=== PATIENT | female | born 1995 | race Two or more races ===

== ENCOUNTER 2022-08-03 17:39 | Emergency (ER) | payer OTHER, SELFPAY ==
--- NOTE | ~2022-08-03 | XR_ITS ---
EXAMINATION: XR LUMBOSACRAL SPINE CLINICAL INFORMATION: Back pain COMPARISON: None TECHNIQUE: Three views of the lumbosacral spine. FINDINGS: Transitional vertebra at the lumbosacral junction consistent with a partially lumbarized S1 segment. Rudimentary S1-S2 intervertebral disc. 5 nonrib-bearing lumbar-type vertebra. Normal alignment. No subluxation. Minimal dextroconvex curvature of the lumbar spine. Vertebral body heights are maintained. No acute fracture. Mild disc height loss at L5-S1 with minimal endplate sclerosis. Intervertebral disc heights otherwise maintained. No pars defects identified. XR/XR lumbar spine 2-3V IMPRESSION: 1. Transitional anatomy with spine labeling as above for purposes of this report. 2. Mild disc degenerative change at L5-S1. 3. No subluxation or fracture.
[2022-08-03 18:17] VITALS: BP 126/75; PULSE 75; RESP 16; TEMP 35.9; O2SAT 98; BMI 49.6
--- NOTE | 2022-08-03 19:35 | ED_ITS ---
HPI - Back Pain/Injury General Chief Complaint: Back Pain/Injury Stated Complaint: back pain Time Seen by Provider: 08/03/22 19:35 Source: patient Mode of arrival: ambulatory Limitations: no limitations History of Present Illness HPI Narrative: 26-year-old female with no pertinent PMHx presenting to the ED with low back pain x 5 days. The patient reports that for the past 5 days she has been having aching right sided low back pain and spasms with radiation down the right leg just above the knee. She also notes some tingling in her right leg. She has been taking Tylenol and using heating pads/lidocaine patches at home without relief. She denies any recent heavy lifting or injury. She tells me that she just took final exams and thought maybe her pain was due to being hunched over at a desk for long periods of time. Denies any midline tenderness, urinary/bowel incontinence/retention,fever, chills, saddle anesthesia, chest pain, shortness of breath, dysuria, or dizziness. Denies IVDA hx and spinal surgeries. MD elicited complaint: back pain Related Data Previous Rx's Medication Instructions Recorded cyclobenzaprine 10 mg tablet 10 mg PO BEDTIME PRN muscle spasm 08/03/22 #7 tabs lidocaine 5 % topical patch 1 patch topical DAILY PRN pain #15 08/03/22 ea Allergies Allergy/AdvReac Type Severity Reaction Status Date / Time strawberry [STRAWBERRY] Allergy Intermediate RASH Unverified 07/17/20 16:41 Review of Systems Review of Systems: Constitutional : No Weight loss, No Fever, No Chills, No Fatigue, No Malaise ENT/Mouth : No sore throat, No Rhinorrhea Eyes: No Eye Pain, No Swelling, No Redness Cardiovascular : No Chest Pain, No SOB, No Dyspnea on Exertion, No Orthopnea, No Edema, No Palpitations Respiratory : No Cough, No Sputum, No Wheezing Gastrointestinal : No Nausea, No Vomiting, No Diarrhea, No Constipation, No abdominal Pain, No Hematochezia, No Melena Genitourinary : No Dysuria, No Urinary Frequency, No Hematuria, Musculoskeletal : + joint pain, No Myalgias, No Joint Swelling Skin : No Skin Lesions, No rash Neuro : No Weakness, No Numbness, No Dizziness, No Headache Psych : No Anxiety/Panic, No Depression All other systems reviewed and are negative Yes all other systems are reviewed and are negative [facility] Past Medical History Attestation statement: The following information was validated with the patient. Source: old records reviewed and nursing notes reviewed Social History Social History Advance Directives: No Advance Directives Information Provided: No Physical Exam 2 Vital Signs: Vital Signs: Last Vital Signs Temp 96.7 F L 08/03/22 18:17 Pulse 75 08/03/22 18:17 Resp 16 08/03/22 18:17 BP 126/75 08/03/22 18:17 Pulse Ox 98 08/03/22 18:17 O2 Del Method 08/03/22 18:17 BMI result Body Mass Index 49.6 VSS Appearance: Alert.? Oriented X3.? No acute distress.? Head: Normocephalic, atraumatic, no step-offs or deformities Eyes: Pupils equal, round and reactive to light.? Neck: Normal inspection.? Neck supple.? CVS: Normal heart rate and rhythm.? Pulses normal, 2+ distally, bilaterally. Respiratory: No respiratory distress.? Breath sounds normal.? Abdomen: Soft and nontender.? Skin: Skin warm and dry.? Normal skin color.? Normal skin turgor.? Extremities: No lower extremity edema.? No calf ttp. 5/5 strength to bilateral upper and lower extremities 2+ dtr B/L lower extremities. Back: Mild right lumbar paraspinal tenderness to palpation. No midline tenderness, no C-spine tenderness, full range of motion, no CVA tenderness bilaterally. DTRs intact at patella. Sensation intact to lower extremities. Neuro: Oriented X 3.? No motor deficit.? No sensory deficit. CN 2-12 intact . No saddle paresthesias ambulating with steady gait normal coordination. Course Reevaluation(s) Reevaluation #1: X-ray of the lumbar spine with mild degenerative changes at L5-S1, no subluxation or fractures. Educated patient on findings of x-ray. Advised her to follow-up with [facility], will likely require an MRI if symptoms continue. Patient ambulating with steady gait and telling me that Toradol helped a lot. She reports significant improvement, tells me she is feeling much better and would like to go home. At this time patient will be discharged home with strict return precautions. Time: 21:09 MDM - Back Pain/Injury MDM Narrative Medical decision making narrative: 19:40 26 y/o female with no known PMHx presenting to the ED with lower back pain w/ radiation down the right leg. No known injury. PE remarkable for mild right paraspinal tenderness, no midline tenderness. Suspect sciatica at this time. Possible muscle strain. Low suspicion for acute fracture, cauda equina, epidural abscess. Plan to obtain basic labs, lumbar spine x-ray. Will give Toradol, lidocaine, and reevaluate. Medical Records Attestation: I reviewed the patient's medical records. Lab Data Attestation: I reviewed the patient's lab results. Critical Care Time Critical Care Time Critical Care Time: No Discharge Plan Discharge Clinical Impression: Sciatica Patient Disposition: Home, Self-Care Instructions: Sciatica (ED) Additional Instructions: Take your medications as prescribed. If you were prescribed antibiotics today, it is important that you take your medication to their entirety, do not skip any doses, do not finish them early. Follow-up with your primary care provider this week. Follow-up with [facility], you may require an MRI of the back to further evaluate this. Return to the emergency department with new or worsening symptoms. Such as fevers, chills, chest pain, shortness of breath, nausea, vomiting, dizziness, headache, vision changes, lethargy, loss of bladder or bowel control, weakness, loss of sensation to lower extremities. In case of emergency call 911 You can take ibuprofen every 6 hours, Tylenol every 4 as needed for pain or discomfort. Takes cyclobenzaprine at night as discussed, do not take this while driving or operating machinery as it can cause drowsiness. Prescriptions: New cyclobenzaprine 10 mg tablet 10 mg PO BEDTIME PRN (Reason: muscle spasm) Qty: 7 0RF lidocaine 5 % adhesive patch,medicated 1 patch topical DAILY PRN (Reason: pain) Qty: 15 0RF Rx Instructions: leave on most painful area for up to 12 hrs Referrals: [facility] [Provider Group] - 3 days Nu Wadsworth MD [Primary Care Provider] - 2 days Stand Alone Forms: Work/School Release
[2022-08-03] MEDS: Ketorolac Tromethamine 15 MG/ML VIAL IM (20:49)
[2022-08-03] MEDS: Lidocaine 4 % Patch ADH..PATCH 1 PATCH TRANSDERMA (20:49)
== END 2022-08-03 21:27 | disposition home or self-care (01) ==
PROVIDERS: Emergency Provider Emergency Medicine Emergency Medical Services; PCP Internal Medicine
DX: M54.41 Lumbago with sciatica, right side (principal)
CPT/HCPCS: 72100; 96372; 99283; 99284; J1885

== ENCOUNTER 2022-08-20 11:13 | Emergency (ER) | payer OTHER, SELFPAY ==
[2022-08-20 11:16] VITALS: BP 149/81; PULSE 94; RESP 18; TEMP 36.6; O2SAT 94; BMI 51.1
--- NOTE | 2022-08-20 11:46 | ED_ITS ---
HPI - Back Pain/Injury General Chief Complaint: Back Pain/Injury Stated Complaint: lower back pain Time Seen by Provider: 08/20/22 11:34 Source: patient Mode of arrival: ambulatory History of Present Illness HPI Narrative: 26-year-old female with a past medical history of sciatica presenting to the ED complaining of recurrent sciatic pain since yesterday. Reports similar symptoms in the past was seen in ED prescribed muscle relaxer/Lidoderm patches, and also at PCPs office, reports symptoms did improve however yesterday worsened. Admits to pain worse on the left low back with radiation down lower extremity and associated paresthesias. Denies known injury, trauma, fall, weakness, urinary incontinence/retention, fever MD elicited complaint: back pain Pertinent past history: prior back pain Onset (ago): day(s) Related Data Previous Rx's Medication Instructions Recorded cyclobenzaprine 10 mg tablet 10 mg PO BEDTIME PRN muscle spasm 08/03/22 #7 tabs lidocaine 5 % topical patch 1 patch topical DAILY PRN pain #15 08/03/22 ea acetaminophen 500 mg tablet 500 mg PO Q6H PRN fever or pain 08/20/22 (Tylenol Extra Strength) #14 tabs cyclobenzaprine 5 mg tablet 5 mg PO Q8H PRN pain (scale score 08/20/22 7-10) 5 days #14 tabs lidocaine 5 % topical patch 1 patch topical DAILY PRN pain #30 08/20/22 (Lidoderm) ea naproxen 500 mg tablet 500 mg PO BID PRN pain 10 days #20 08/20/22 tabs prednisone 20 mg tablet 40 mg PO DAILY 5 days #10 tabs 08/20/22 Allergies Allergy/AdvReac Type Severity Reaction Status Date / Time strawberry [STRAWBERRY] Allergy Intermediate RASH Unverified 07/17/20 16:41 Review of Systems Review of Systems: Constitutional: No Fever, No Chills ENT/Mouth: No Ear Pain, No Nasal Congestion, No sore throat, No Rhinorrhea, No Swallowing Difficulty Cardiovascular: No Chest Pain, No SOB Respiratory: No Cough, No Sputum, No Wheezing Gastrointestinal: No Nausea, No Vomiting, No Diarrhea, No Constipation, No Abdominal pain Genitourinary: No Dysuria, No Urinary Frequency, No Hematuria, No Urinary Incontinence/retention, No Urgency, No Flank Pain Musculoskeletal: + back pain, No Myalgias, No Joint Swelling Skin: No Skin Lesions, No rash Neuro: No Weakness, No Numbness, + Paresthesias Yes all other systems are reviewed and are negative Constitutional: Constitutional: Reports as per HPI Neurologic: Denies Sensory deficit (Neuro) [facility] Past Medical History Attestation statement: The following information was validated with the patient. Social History Social History Advance Directives: No Advance Directives Information Provided: No Physical Exam Vital Signs: Vital Signs: Last Vital Signs Temp 97.8 F 08/20/22 11:16 Pulse 94 08/20/22 11:16 Resp 18 08/20/22 11:16 BP 149/81 H 08/20/22 11:16 Pulse Ox 94 08/20/22 11:16 O2 Del Method 08/20/22 11:16 BMI result Body Mass Index 51.1 Const: General: cooperative, healthy appearing and no acute distress Orientation/consciousness: patient oriented x3 Limitations: no limitations HEENT: Head: Yes normal to inspection and Yes atraumatic Ears: hearing grossly normal bilaterally General nose exam: Normal external nose present Face and sinus: Yes normal facial exam Eyes: General: appearance normal, both eyes and all related structures EOM: EOMs intact bilaterally Neck: Neck: Yes normal visual inspection and Yes no meningeal signs Resp: Effort & Inspection: normal respiratory effort and no respiratory distress Auscultation: clear to auscultation bilaterally Cardio: Rate: regular rate Heart sounds: S1 normal heart sound present and S2 normal heart sound present GI: Inspection: Yes normal to inspection Palpation (GI): Soft to palpation and nontender : General: Yes no CVA tenderness Back/Spine/Pelvis: Other: No midline thoracic/lumbar spinous tenderness/step-off or deformity. + left- sided lower lumbar paraspinal and MSK tenderness to palpation Back: no CVA tenderness Skin: Rashes: no rashes Wounds: no wounds Neuro: Other: Strength intact throughout. No saddle anesthesia. Sensation intact to light touch. Neurovascular intact distally General: patient oriented x3, gait normal, tone normal, moves all extremities, no meningeal signs and no focal motor deficits Gait exam (Neuro): Normal gait present Motor exam (neuro): 5/5 motor strength present throughout Sensory Exam: No Sensory deficit (Neuro) Extrem: General: Yes normal to inspection MDM - Back Pain/Injury MDM Narrative Medical decision making narrative: 26-year-old female with a past medical history of sciatica presenting to the ED complaining of recurrent sciatic pain since yesterday. On exam vital signs stable, NAD, nontoxic appearing, physical exam as above, no midline spinous tenderness or red flag symptoms. Concern for sciatica vs herniated disc vs MSK pain/strain. Low suspicion for cauda equina, cord compression or epidural abscess Plan: IM Toradol, symptomatic treatment, PCP follow-up Differential Diagnosis Differential diagnosis: Likely lumbar radiculopathy, sciatica and strain of lumbar region; Unlikely renal colic or pyelonephritis Medical Records Attestation: I reviewed the patient's medical records. Lab Data Attestation: I reviewed the patient's lab results. Discharge Plan Discharge Clinical Impression: Sciatica Patient Disposition: Home, Self-Care Instructions: Sciatica (ED) Additional Instructions: Your pain is likely musculoskeletal Flexeril is a muscle relaxer, take at night as it makes you drowsy, do not drive, drink alcohol, or operate machinery while taking it Prednisone as a steroid, this is a help with inflammation. Naproxen as an anti-inflammatory / pain medication, take with food Lidoderm patches are numbing patches, apply to painful area In addition take Tylenol at home If symptoms persist or worsen, pain becomes unbearable, you developed urinary retention or incontinence, or weakness return to the ED Prescriptions: New prednisone 20 mg tablet 40 mg PO DAILY 5 Days Qty: 10 0RF acetaminophen [Tylenol Extra Strength] 500 mg tablet 500 mg PO Q6H PRN (Reason: fever or pain) Qty: 14 0RF lidocaine [Lidoderm] 5 % adhesive patch,medicated 1 patch topical DAILY MDD remove after 12 hours PRN (Reason: pain) Qty: 30 0RF Rx Instructions: leave on most painful area for up to 12 hrs naproxen 500 mg tablet 500 mg PO BID PRN (Reason: pain) 10 Days Qty: 20 0RF cyclobenzaprine 5 mg tablet 5 mg PO Q8H PRN (Reason: pain (scale score 7-10)) 5 Days Qty: 14 0RF No Action cyclobenzaprine 10 mg tablet 10 mg PO BEDTIME PRN (Reason: muscle spasm) Qty: 7 0RF lidocaine 5 % adhesive patch,medicated 1 patch topical DAILY PRN (Reason: pain) Qty: 15 0RF Rx Instructions: leave on most painful area for up to 12 hrs Referrals: Nu Wadsworth MD [Primary Care Provider] - 1 week Stand Alone Forms: Work/School Release Interventions: ED Discharge Assessment Last Done: 08/20/22 12:02 Discharge Date/Time: 08/20/22 12:03
[2022-08-20] MEDS: Ketorolac Tromethamine 30 MG/ML VIAL IM (11:47)
== END 2022-08-20 12:03 | disposition home or self-care (01) ==
PROVIDERS: Emergency Provider Emergency Medicine; PCP Internal Medicine
DX: M54.42 Lumbago with sciatica, left side (principal)
CPT/HCPCS: 96372; 99283; 99284; J1885

== ENCOUNTER 2023-06-12 12:01 | Emergency (ER) | payer OTHER, SELFPAY ==
[2023-06-12 12:06] VITALS: BP 124/67; PULSE 90; RESP 18; TEMP 37.1; O2SAT 98; BMI 52.0
--- NOTE | 2023-06-12 12:14 | ED_ITS ---
HPI - General Adult General Chief complaint: General Medical Stated complaint: Nausea/Body aches/Sore throat Time Seen by Provider: 06/12/23 12:35 Source: patient Mode of arrival: ambulatory Limitations: no limitations History of Present Illness HPI narrative: Patient is a 27-year-old female presenting to the emergency department with 4 days of generalized body aches, sore throat, sweats/chills, nausea and dry he aves, diarrhea. She denies abdominal pain. Has been able to tolerate PO food and fluids throughout. Denies sick contacts. MD complaint: nausea, vomiting, diarrhea Onset (ago): day(s) Quality: burning (throat) Pain Consistency: constant Relieving factors: none Exacerbating factors: eating Associated symptoms: fever/chills and nausea/vomiting Treatments prior to arrival: other (OTC cold and flu medicine) Related Data Previous Rx's Medication Instructions Recorded cyclobenzaprine 10 mg tablet 10 mg PO BEDTIME PRN muscle spasm 08/03/22 #7 tabs lidocaine 5 % topical patch 1 patch topical DAILY PRN pain #15 08/03/22 ea acetaminophen 500 mg tablet 500 mg PO Q6H PRN fever or pain 08/20/22 (Tylenol Extra Strength) #14 tabs cyclobenzaprine 5 mg tablet 5 mg PO Q8H PRN pain (scale score 08/20/22 7-10) 5 days #14 tabs lidocaine 5 % topical patch 1 patch topical DAILY PRN pain #30 08/20/22 (Lidoderm) ea naproxen 500 mg tablet 500 mg PO BID PRN pain 10 days #20 08/20/22 tabs prednisone 20 mg tablet 40 mg PO DAILY 5 days #10 tabs 08/20/22 ibuprofen 600 mg tablet 600 mg PO Q8H PRN pain #10 tabs 06/12/23 ondansetron 4 mg disintegrating 4 mg PO Q8H PRN nausea and 06/12/23 tablet vomiting #10 tabs Allergies Allergy/AdvReac Type Severity Reaction Status Date / Time strawberry [STRAWBERRY] Allergy Intermediate RASH Verified 06/12/23 12:06 Review of Systems Review of Systems: As per HPI. Yes all other systems are reviewed and are negative Constitutional: Constitutional: Reports as per HPI [facility] Social History Social History Advance Directives: No Physical Exam ED Vital Signs: Vital Signs - 24 hr 06/12/23 12:06 Temperature 98.7 F Pulse Rate 90 Respiratory Rate 18 Blood Pressure 124/67 Pulse Oximetry 98 Oxygen Delivery Method Room Air BMI result Body Mass Index 52.0 Vital signs have been reviewed and appear to be correct. Blood pressure normal. Heart rate normal. Respiratory rate normal. Temperature normal. Oxygen saturation normal. Const General: cooperative, healthy appearing and no acute distress Orientation/consciousness: oriented to person, oriented to place, oriented to time and patient oriented x3 Limitations: no limitations HENMT Head: Yes normocephalic and Yes atraumatic Ears: external ears normal, TM's normal bilaterally and EAC's normal General nose exam: Normal external nose present Face and sinus: Yes face symmetric Mouth: oropharynx normal and moist mucous membranes Throat: Yes posterior oropharynx normal, Yes uvula midline and No uvular edema Eyes Pupils: Equal, round and reactive pupils present Neck Neck: Yes normal visual inspection, Yes no lymphadenopathy and Yes supple Resp Effort & Inspection: normal respiratory effort and able to speak in complete sentences Auscultation: clear to auscultation bilaterally Cardio Rate: regular rate Rhythm: regular rhythm Heart sounds: S1 normal heart sound present and S2 normal heart sound present GI Inspection: Yes normal to inspection Palpation (GI): Soft to palpation and nontender Auscultation: normoactive bowel sounds General: Yes no CVA tenderness Back/Spine/Pelvis Back: no CVA tenderness Skin General skin exam: elasticity normal and turgor normal Neuro General: oriented to person, oriented to place, oriented to time, patient oriented x3, moves all extremities, no focal motor deficits and CN's II-XI intact bilaterally Cranial nerves: Yes Equal, round and reactive pupils present Cognition (Neuro): normal cognition Extrem General: Yes full ROM, Yes no pedal edema and Yes no calf tenderness Psych Mental Status: mental status grossly normal Affect: normal affect Thought process: Normal thought process present Course Course Course Narrative: RME: 27 yold female presents to the ED for nausea, bodyaches, cough, dry heaving, diarrhea since yesterday. patient states no recent travel outside the country. Strep/covid/influenza ordered Medical Decision Making Medical Decision Making MDM Narrative: Patient is a 27-year-old female presenting to the emergency department with 4 days of generalized body aches, sore throat, sweats/chills, nausea and dry heaves, diarrhea. On exam patient is awake, A+Ox3, VS WNL, afebrile, nontoxic appearing, normal neurological exam without focal deficits, LS CTA throughout, abdomen soft and nontender, no CVA tenderness. Given reported symptoms and physical exam findings, initial differential includes viral illness including Covid, flu, strep pharyngitis, viral gastroenteritis. Labs notable for Covid, flu, and strep negative. Feel symptoms are likely related to viral gastroenteritis, patient stable for discharge home. Will prescribe ondansetron for nausea, 600mg ibuprofen. Instructed patient to follow-up with PCP. Return precautions discussed at bedside. Patient verbalized understanding of and agreement with plan. Differential Diagnosis Differential Diagnoses: The differential diagnosis associated with the presentation includes As per [facility]. Lab Data [facility] Lab Attestation statement: I reviewed the patient's lab results. As per [facility]. Labs: Lab Results 06/12/23 06/12/23 06/12/23 Range/Units 12:20 12:20 12:20 COVID-19 ([facility]) Negative (Negative) COVID-19 Clin Com See Note Influenza Type A ([facility]) Negative (Negative) Influenza Type B ([facility]) Negative (Negative) Influenza A & B Note See Note S. pyogenes GrpA [facility] Negative (Negative) External Record Review External record reviewed: Inpatient record, Office record and Outpatient record Prescription Management I considered prescription management with: Other Discharge Plan Discharge Clinical Impression: Viral gastroenteritis Patient Disposition: Home, Self-Care Instructions: Acute Nausea and Vomiting (ED), Acute Diarrhea (ED), Enteritis (ED) Additional Instructions: You have been evaluated in the emergency department today for nausea, vomiting, and diarrhea. Your evaluation suggests that your symptoms are most likely due to a viral illness which will improve on it's own with rest and fluids. Remember to drink plenty of fluids at home. You are being prescribed ondansetron which you can use as per the prescription instructions for nausea. You are also being prescribed 600mg ibuprofen which you can take every 6 hours. You can also take Tylenol as needed. Please follow up with your primary care provider within two days. Return to the emergency department if you experience worsening or uncontrolled pain, inability to tolerate fluids by mouth, difficulty breathing, fevers 100.4? F or greater, recurrent vomiting, or any other concerning symptoms. Prescriptions: New ondansetron 4 mg tablet,disintegrating 4 mg PO Q8H PRN (Reason: nausea and vomiting) Qty: 10 0RF ibuprofen 600 mg tablet 600 mg PO Q8H PRN (Reason: pain) Qty: 10 0RF No Action cyclobenzaprine 10 mg tablet 10 mg PO BEDTIME PRN (Reason: muscle spasm) Qty: 7 0RF lidocaine 5 % adhesive patch,medicated 1 patch topical DAILY PRN (Reason: pain) Qty: 15 0RF Rx Instructions: leave on most painful area for up to 12 hrs prednisone 20 mg tablet 40 mg PO DAILY 5 Days Qty: 10 0RF acetaminophen [Tylenol Extra Strength] 500 mg tablet 500 mg PO Q6H PRN (Reason: fever or pain) Qty: 14 0RF lidocaine [Lidoderm] 5 % adhesive patch,medicated 1 patch topical DAILY MDD remove after 12 hours PRN (Reason: pain) Qty: 30 0RF Rx Instructions: leave on most painful area for up to 12 hrs naproxen 500 mg tablet 500 mg PO BID PRN (Reason: pain) 10 Days Qty: 20 0RF cyclobenzaprine 5 mg tablet 5 mg PO Q8H PRN (Reason: pain (scale score 7-10)) 5 Days Qty: 14 0RF Stand Alone Forms: Work/School Release Interventions: ED Discharge Assessment Last Done: 06/12/23 13:13 Discharge Date/Time: 06/12/23 13:13
[2023-06-12 12:43] LABS: IDNOW Serial# 08D9AD1C; Strep A Nucleic Acid Negative (Negative)
[2023-06-12 12:49] LABS: COVID-19 Test Negative (Negative); IDNOW Serial# 9DB6401D
[2023-06-12 12:51] LABS: IDNOW Serial# BCCEAD1C; Influenza A Negative (Negative); Influenza B2 Negative (Negative)
== END 2023-06-12 13:13 | disposition home or self-care (01) ==
PROVIDERS: Physician Assistant; Emergency Provider Emergency Medicine Emergency Medical Services; PCP Internal Medicine
DX: A08.4 Viral intestinal infection, unspecified (principal); M79.10 Myalgia, unspecified site; R11.2 Nausea with vomiting, unspecified; J02.8 Acute pharyngitis due to other specified organisms; R50.9 Fever, unspecified; Z20.822 Contact with and (suspected) exposure to COVID-19; Z20.828 Contact with and (suspected) exposure to other viral communicable diseases; Z79.899 Other long term (current) drug therapy
CPT/HCPCS: 87502; 87635; 87651; 99282; 99283

== ENCOUNTER 2025-01-01 10:14 | Outpatient (AMB) | payer OTHER, SELFPAY ==
[2025-01-01 10:32] VITALS: BP 122/72; BMI 50.7
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
== END 2025-01-01 11:41 | disposition home or self-care (01) ==
PROVIDERS: PCP Internal Medicine; Visit Provider Advanced Practice Midwife
DX: Z97.5 Presence of (intrauterine) contraceptive device (principal); Z62.810 Personal history of physical and sexual abuse in childhood; F43.10 Post-traumatic stress disorder, unspecified; E66.01 Morbid (severe) obesity due to excess calories; Z30.018 Encounter for initial prescription of other contraceptives
CPT/HCPCS: 99204

== ENCOUNTER → 2025-01-01 10:14 | Outpatient (BNVA) | payer OTHER, SELFPAY | PROVIDERS: PCP Internal Medicine; Visit Provider Advanced Practice Midwife ==

== ENCOUNTER 2025-02-15 14:36 | Outpatient (AMB) | payer OTHER, SELFPAY ==
--- NOTE | 2025-02-15 14:39 | MHC.OFFVIS ---
Vital Signs 02/15/25 14:54 Height 5 ft 5 in Weight 305 lb BMI 50.7 BP 120/72 Intake Visit Reasons: Nexplanon Removal Air Brake Tester: Air Brake Tester Present (Delores Patel, KEITH) Accompanied by: Self / Same As Patient Allergies strawberry [STRAWBERRY] Allergy (Intermediate, Verified 02/15/25 14:53) RASH Is last menstrual period known: Yes Last menstrual period: 10/23/24 Post menopausal: No Patient : No HPI HPI Nexplanon Removal: Details: Patient is here to remove her Nexplanon she had it inserted in the fall when there was major fear about accessibility to control with the upcoming administration. Those fears are still there however she is not sexually active, but the side effects are not worth it at this time so she would like it removed. [facility] Medical History Asthma Family History Mother Cervical cancer Social History (Updated 01/01/25 @ 10:38 by Houston Arevalo CMA) Alcohol intake: current Alcohol intake frequency: holidays/special occasions only Patient Tobacco Use Status: Never used Tobacco Female Reproductive History Menstrual Age of Menarche: 13 Duration of menses: 8-10 days Date of last menstrual period: 10/23/24 control method: implanted Total pregnancies: 0 Physical Exam Vital Signs: Last Vital Signs BP 120/72 02/15/25 14:54 BMI result Body Mass Index 50.7 Const Other: Nexplanon palpable in patient's arm Office Procedures Contraception Insert/Removal Details Details: Nexplanon Removal/Reinsertion Insertion Procedure The patient was placed in a supine position with her non dominant hand resting under her head. The insertion site was located: 8-10cm from the medial epicondyle notch of the humerus, posterior to the sulcus, between the triceps and biceps muscle. The area of the previous implant was identified and the distal tip located. This area was cleansed with an alcohol prep and 3 ml of 2% Lidocaine on a 25 gauge needle and syringe was utilized for adequate anesthesia to the insertion site. After ascertaining adequate anesthesia, the area was prepped with Betadine solution. The skin over the distal tip was incised with a #11 blade scalpel and the capsule was located and entered freeing the implant from the canal. The implant was removed with a gentle tug using a mosquito clamp and removed intact. Direct pressure was applied to the insertion site for hemostasis, minimal bleeding was observed. Steri strips, Tegaderm covering, gauze pads, and Bradley wrap dressing were secured with paper tape. The implant was palpable underneath the skin by myself and the patient. The patient tolerated the procedure well and left the office in good condition. 05773 - Removal Assessment & Plan Assessment & Plan (1) Nexplanon in place: Comment: Removed 02/15/2025 Code(s): Z97.5 - Presence of (intrauterine) contraceptive device Category: Social Hx (2) Hormonal contraceptive: Code(s): Z30.018 - Encounter for initial prescription of other contraceptives Category: Social Hx (3) Obesity, morbid, BMI 50 or higher: Code(s): E66.01 - Morbid (severe) obesity due to excess calories Category: Medical (4) Encounter for Nexplanon removal: Code(s): Z30.46 - Encounter for surveillance of implantable subdermal contraceptive Category: Medical Plan See the note. The Nexplanon was removed without difficulty Steri-Strips were placed and a Tegaderm over that and a pressure dressing placed over that recommend leaving the pressure dressing on as long as she can as the generous use of the lidocaine and the adipose might tend towards disruption of the site if removed early. She was on control pills before the Nexplanon and would like to get back on them again she has a history of irregular periods so this would benefit her in terms of at least preventing buildup of uterine lining and unpredictable problematic vaginal bleeding patterns. I prescribed a low-dose control pill for her that I recommend she start this weekend possibly on Tuesday and that way she will be covered and be protected from buildup of a uterine lining. We will see her in about 2 months to see how she is doing blood pressure vences and how she likes the pills and also just double check the Nexplanon site. Reviewed what to do if there is any problems with bleeding, but I recommend leaving the pressure dressing on as long as possible and if it is not bothering her consider leaving it on overnight leave the Tegaderm on for 3 days. Orders: Orders AMB Nexplanon/Implanon Insertion - Patient Supply Today Z30.018 - Encounter for initial prescription of other contraceptives, Z30.46 - Encounter for surveillance of implantable subdermal contraceptive, Z97.5 - Presence of (intrauterine) contraceptive device Medications: New desog-e.estradiol/e.estradiol 0.15-0.02 mgx21 /0.01 mg x 5 1 tab PO DAILY 84 tabs 4RF Coding Level of Care Code Est Pt Level 3 (87873) Diagnoses Nexplanon in place Z97.5 Hormonal contraceptive Z30.018 Obesity, morbid, BMI 50 or higher E66.01 Encounter for Nexplanon removal Z30.46 CPT Codes Details - Contraception: 70855 - Removal ([id number])
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
[2025-02-15 14:54] VITALS: BP 120/72; BMI 50.7
== END 2025-02-15 16:10 | disposition home or self-care (01) ==
LOC: HO.HWS 14:36
PROVIDERS: PCP Internal Medicine; Visit Provider Advanced Practice Midwife
DX: Z30.46 Encounter for surveillance of implantable subdermal contraceptive (principal)
CPT/HCPCS: 11982

== ENCOUNTER → 2025-02-15 14:36 | Outpatient (BNVA) | payer OTHER, SELFPAY | PROVIDERS: PCP Internal Medicine; Visit Provider Advanced Practice Midwife | DX: E66.01 Morbid (severe) obesity due to excess calories (principal); Z30.46 Encounter for surveillance of implantable subdermal contraceptive; Z30.018 Encounter for initial prescription of other contraceptives; Z68.43 Body mass index [BMI] 50.0-59.9, adult | CPT/HCPCS: 11982 ==

== ENCOUNTER 2025-02-17 16:11 | Emergency (ER) | payer OTHER, SELFPAY ==
--- NOTE | ~2025-02-17 | CT_ITS ---
CLINICAL HISTORY: left flank pain CT abdomen and pelvis without contrast Comparison: None Findings: The lung bases are clear. Moderate left hydronephrosis with an obstructing 3 mm stone at the left ureterovesicular junction. Additionally punctate nonobstructing stones are noted bilaterally. Gallbladder is contracted with multiple gallstones. No pericholecystic fluid. Solid organs are otherwise unremarkable. No bowel obstruction, pneumoperitoneum, or pneumatosis. Pelvic contents unremarkable. No evidence of appendicitis. No acute fracture. IMPRESSION: Moderate left hydronephrosis with a 3 mm obstructing stone at the ureterovesicular junction. Additional punctate nonobstructing stones seen bilaterally. Cholelithiasis with contracted gallbladder. This document has been electronically signed by: Brian Lowery MD on 02/17/2025 19:40:22
[2025-02-17 16:19] VITALS: BP 144/102; PULSE 103; RESP 16; TEMP 36.6; O2SAT 98; BMI 56.7
--- NOTE | 2025-02-17 16:19 | ED.ABDPAIN ---
HPI - Abdominal Pain General Chief Complaint: Abdominal Pain Stated Complaint: cramping pain really bad Time Seen by Provider: 02/17/25 18:01 Source: patient and RN notes reviewed Mode of arrival: ambulatory Limitations: no limitations History of Present Illness ED Provider: Bharath ABDUL narrative: 29-year-old female with a past medical history significant for asthma presents for evaluation of left flank pain and abdominal pain. patient reports that she had her Nexplanon removed 2 days ago on Tuesday. She developed left-sided abdominal pain Around 4:00 a.m. this morning that has been getting progressively worse. The pain started in the left flank and radiates to her left mid to lower abdomen. She reports nausea without vomiting and has had decreased appetite denies any vaginal bleeding or discharge denies any history of kidney stones denies any history abdominal surgeries her pain is an 06/09 Related Data Home Medications ?Medication ?Instructions ?Recorded ?Confirmed albuterol sulfate 90 mcg/actuation 2 puff inhalation Q6H PRN 01/01/25 01/01/25 aerosol inhaler Previous Rx's ?Medication ?Instructions ?Recorded acetaminophen 500 mg tablet 500 mg PO Q6H PRN fever or pain 08/20/22 (Tylenol Extra Strength) #14 tabs ibuprofen 600 mg tablet 600 mg PO Q8H PRN pain #10 tabs 06/12/23 desogestrel-e.estradiol 0.15 1 tab PO DAILY #84 tabs 02/15/25 mg-0.02 mg(21)/e.estrad 0.01 mg(5) tablet cefuroxime axetil 250 mg tablet 250 mg PO Q12H #10 tabs 02/17/25 tamsulosin 0.4 mg capsule 0.4 mg PO DAILY #7 caps 02/17/25 tramadol 50 mg tablet 50 mg PO Q8H PRN severe pain 02/17/25 (scale score 7-10) #12 tabs Allergies Allergy/AdvReac Type Severity Reaction Status Date / Time strawberry [STRAWBERRY] Allergy Intermediate RASH Verified 02/17/25 16:23 Review of Systems Constitutional: Denies anorexia, Denies body ache(s), Denies fever(s) and Denies frequent falls Eyes: Denies blurry vision Denies dysphagia and Denies vertigo Cardiovascular: Denies chest pain and Denies dyspnea Respiratory: Denies cough and Denies dyspnea Gastrointestinal: Reports abdominal pain, Denies GI cramping, Denies dysphagia, Reports nausea and Denies vomiting Genitourinary: Denies change in libido, Denies dysuria, Denies pelvic pain, Reports flank pain and Denies vaginal discharge Musculoskeletal: Reports back pain Skin/Breast: Denies rash Denies vertigo and Denies frequent falls Psychiatric: Denies change in libido Endocrine: Denies change in libido [facility] Past Medical History Medical History Asthma Family History Family History Mother Cervical cancer Social History Social History (Updated 01/01/25 @ 10:38 by [place] Arevalo CMA) Alcohol intake: never Patient Tobacco Use Status: Never used Tobacco Smoked in Last 30 Days: No Use of substances other than those prescribed or required for medical reasons: No Advance Directives: No Advance Directives Information Provided: No Do you have a plan to hurt others: No Plan Patient : No Physical Exam ED Vital Signs: Vital Signs - 24 hr 02/17/25 16:19 02/17/25 18:00 02/17/25 21:06 Temperature 97.9 F 98.1 F Pulse Rate 103 H 96 97 Respiratory Rate 16 18 16 Blood Pressure 144/102 H 141/89 H 131/92 H Pulse Oximetry 98 98 98 Oxygen Delivery Method Room Air Room Air Room Air BMI result Body Mass Index 56.7 Const General: healthy appearing, comfortable, no acute distress, alert and awake Nutritional Appearance: well nourished Orientation/consciousness: patient oriented x3 [facility] Head: Yes normocephalic and Yes atraumatic Eyes Eyelids: Yes eyelids normal Conjunctivae: conjunctivae normal Sclerae: sclerae normal Corneas: corneas normal Pupils: Equal, round and reactive pupils present EOM: EOMs intact bilaterally Neck Neck: Yes full ROM Resp Effort & Inspection: normal respiratory effort, able to speak in complete sentences and not labored GI Other: morbidly obese Inspection: Yes obesity Palpation (GI): Soft to palpation, not firm, Tenderness to palpation present (GI) in the LLQ and in the LUQ; not in the RLQ and not in the RUQ, no guarding and not rigid Skin General skin exam: elasticity normal Neuro General: patient oriented x3 Cranial nerves: Yes Equal, round and reactive pupils present and Yes Bilaterally intact EOM present Cognition (Neuro): normal cognition Extrem Other: Moving all extremities well without any obvious deformities Course Course Course Narrative: This is an RME performed by Stacey Barraza CNP: Additional HPI, ROS, PE not included below will be deferred to primary provider. Patient is a 29-year-old female presents emergency department for evaluation of severe cramping left lower quadrant abdominal pain with nausea. No vaginal bleeding abnormal discharge. States that today she is having difficulty urinating, has urinary urgency but voiding minimal amounts. Denies hematuria. She does state that she had Nexplanon contraceptive removed 2 days ago, had only been implanted for 6 months. Plan: Serum labs, urinalysis, hCG, bladder scan Reevaluation(s) Reevaluation #1: the patient's pain has resolved, it is possible that she passed the stone that was stuck at the UVJ. We will discharge her with cefuroxime given her high white count at a little bit of bacteria in the urine. Her pain is well controlled, she will be given return precautions Time: 21:49 Medical Decision Making Medical Decision Making MDM Narrative: 29-year-old female presents for evaluation of left flank pain that started abruptly this morning. The pain waxes and wanes in intensity. History exam is consistent with a obstructive uropathy. She denies any history of this. She did have a Nexplanon removed 2 days ago but does not have pelvic pain vaginal bleeding or discharge. Denies any vomiting, constipation or diarrhea. Less likely pelvic pathology as her pain is quite high in the left flank radiating to left lower abdomen. [place] [address] with a left shift. There was no bandemia. Chemistries are without any significant concerning findings. The CO2 is low at 20 likely due to hypoventilation due to her level of discomfort. Vital signs are stable, no evidence of sepsis. Urinalysis is pending. Differential Diagnosis Differential Diagnoses: The differential diagnosis associated with the presentation includes Obstructive uropathy Pyelonephritis UTI PID Diverticulitis Lab Data MDM Lab Attestation statement: I reviewed the patient's lab results. as above 02/17/25 16:28 02/17/25 16:28 Labs: Lab Results 04/20/25 04/20/25 Range/Units 16:28 21:02 WBC 19.0 H (4.8-10.8) X10*3/uL RBC 4.83 (4.20-5.50) X10*6/uL Hgb 13.0 (12.0-16.0) g/dl Hct 39.1 (37.0-47.0) % MCV 81.0 (80.0-98.0) fL MCH 26.9 L (27.0-33.0) pg MCHC 33.2 (31.0-35.0) g/dl RDW 13.5 (11.0-16.0) % Plt Count 415 H (160-400) X10*3/uL MPV 9.6 (9.4-12.3) fL Immature Gran % (Auto) 0.5 H (0.0-0.4) % Neut % (Auto) 83.5 H (45-73) % Lymph % (Auto) 11.4 L (20-40) % [place] % (Auto) 4.1 (2-11) % Eos % (Auto) 0.1 (0-4) % Baso % (Auto) 0.4 (0-2) % Lymph # (Auto) 2.2 (1.2-4.9) X10*3/uL [place] # (Auto) 0.8 (0.1-1.2) X10*3/uL Eos # (Auto) 0.0 (0.0-0.4) X10*3/uL Baso # (Auto) 0.1 (0.0-0.2) X10*3/uL Abs Immat Gran (auto) 0.10 H (0.00-0.03) X10*3/uL Absolute Neuts (auto) 15.9 H (2.0-8.3) x10*3/uL Absolute Nucleated RBC 0.000 (0.0-0.012) X10*3/uL Nucleated RBC % (auto) 0.0 (0.0-0.2) /100WBC Sodium 137 (135-145) mmol/L Potassium 4.1 (3.3-5.1) mmol/L Chloride 108 (96-108) mmol/L Carbon Dioxide 20 L (22-29) mmol/L Anion Gap 13 (12-20) BUN 10 (9-16) mg/dL Creatinine 0.89 (0.5-1.4) mg/dL Estim Creat Clear Calc 143.9 Estimated GFR > 60 Random Glucose 129 H (60-115) mg/dL Calcium 9.1 (8.4-10.2) mg/dL Total Bilirubin 0.7 (0.0-1.0) mg/dL AST 32 H (5-31) U/L ALT 28 (0-31) U/L Alkaline Phosphatase 117 (39-117) U/L Total Protein 6.9 (6.5-8.0) g/dL Albumin 4.0 (3.5-5.0) g/dL Beta HCG, Quant < 2 mIU/mL Urine Color Yellow Urine Appearance Clear Urine pH 5.5 (5.0-9.0) Ur Specific [place] 1.025 (1.005-1.025) Urine Protein Negative (Neg-Trace) mg/dL Urine Glucose (UA) Negative (Negative) mg/dL Urine Ketones 15 (Negative) mg/dL Urine Blood Moderate (2+) H (Negative) Urine Nitrite Negative (Negative) Ur Leukocyte Esterase Small (1+) H (Negative) Urine RBC 6-10 H (0-2) /HPF Urine WBC 6-10 H (0-5) /HPF Ur Squamous Epith Cells 6-10 (0-2) /HPF Urine Bacteria 2+ (None Seen) Hyaline Casts 0-2 (0-2) /LPF Urine Test NEGATIVE (NEGATIVE) Medications Administered Discontinued Medications Generic Name Dose Route Start Last Admin Trade Name Floq PRN Reason Stop Dose Admin Sodium Chloride 1,000 mls @ 999 mls/hr 02/17/25 18:15 02/17/25 19:53 Ns IV 02/17/25 19:15 999 mls/hr .Q1H1M LAKSHMI Administration Ketorolac Tromethamine 30 mg 02/17/25 18:10 02/17/25 20:01 Ketorolac Tromethamine 30 Mg/Ml Vial IVPUSH 02/17/25 18:11 30 mg ONCE ONE Administration Discharge Plan Discharge Clinical Impression: Acute unilateral obstructive uropathy Patient Disposition: Home, Self-Care Instructions: Kidney Stones (ED) Additional Instructions: your CT scan showed a 3 mm kidney stone that was stuck right before your bladder this is a small stone that should pass on its own use ibuprofen/ Tylenol for pain. You may use tramadol for severe breakthrough pain this may make you drowsy, do not drink alcohol or drive after taking it take cefuroxime twice daily for 5 days follow-up with your primary doctor, return for new or worsening symptoms Prescriptions: New cefuroxime axetil 250 mg tablet 250 mg PO Q12H Qty: 10 0RF tamsulosin 0.4 mg capsule 0.4 mg PO DAILY Qty: 7 0RF tramadol 50 mg tablet 50 mg PO Q8H PRN (Reason: severe pain (scale score 7-10)) Qty: 12 0RF No Action acetaminophen [Tylenol Extra Strength] 500 mg tablet 500 mg PO Q6H PRN (Reason: fever or pain) Qty: 14 0RF ibuprofen 600 mg tablet 600 mg PO Q8H PRN (Reason: pain) Qty: 10 0RF albuterol sulfate 90 mcg/actuation HFA aerosol inhaler 2 puff inhalation Q6H PRN desog-e.estradiol/e.estradiol 0.15-0.02 mgx21 /0.01 mg x 5 tablet 1 tab PO DAILY Qty: 84 4RF Print Language: Czech
[2025-02-17 16:33] LABS: MANUAL DIFF FLAG NO
--- OUTSIDE RECORDS SUMMARY | 2025-02-17 16:40 | XMS_ITS | Encounter Summary ---
Author Organization [facility] Address [address] [place] [address] Care Team Providers Care Deputy Attorney General Name Role Phone Diane Lugo MD Primary Care Provider [phone] Nu Wadsworth MD Primary Care Provider Reason for Visit * Reason Comments E-prescribe Rx Request Encounter Details Date Type Department Care Team Description 09/05/2021 Refill OBGYN - [place] [address] [place] [address] Radha Lacy, MINESH [address] [place] [address] E-prescribe Rx Request Social History Tobacco Use Types Packs/Day Years Used Date Smoking Tobacco: Passive Smo ke Exposure - Never Smoker Smokeless Tobacco: Never Comments:Mom smokes inside Alcohol Use Standard Drinks/Week Comments No 0 (1 standard drink = 0.6 oz pur e alcohol) Physical Activity Answer Date Recorded On average, how many days pe r week do you engage in moderate to strenuous exercise (like walking fast, running, jogging, dancing, swimming, biking, or other activities that cause a light or heavy sweat)? 0 days 11/12/2020 On average, how many minutes do you engage in exercise at this level? 0 min 11/12/2020 Sex Assigned at Date Recorded Female 07/01/2021 9:10 AM E DT Job Start Date Occupation Industry Not on file Not on file Not on file documented as of this encounter Miscellaneous Notes * Telephone Encounter - Jamia Sommers - 09/07/2021 1:36 PM EST Last AG 12/24/19. Next AG 12/08/21. Had previous BC 3 month follow up on 04/01/20. AG appt on 08/05/21 cancelled at patient request. Next appointment 12/08/21. Rx pended with 2 refills to get to her AG appointment. * Telephone Encounter - Zahraa Hernandes - 09/07/2021 1:11 PM EST WHEN WAS THE PATIENTS LAST ANNUAL SONOGRAPHY TECHNICIAN EXAM? 12/24/19 Does patient have an upcoming appointment? Yes 12/08/21 (THE MEDICATION REQUESTED IS ON THE MED LIST ABOVE) Did you check the Pharmacy information above?: YES Indicate how soon the patient needs the script: BY THE END OF THE DAY Patient would like script to be: E-PRESCRIBED/FAXED TO PHARMACY Is the doctor here today?: YES Can the message wait until the doctor returns?: NO Has the patient been told that the prescription will not be filled until the end of the day? YES Payor: [employer] FFS / Plan: [facility] [employer] / Product Type: MEDICAID RISK documented in this encounter Plan of Treatment Not on file documented as of this encounter Visit Diagnoses Not on filedocumented in this encounter Care Teams Deputy Attorney General Relationship Specialty Start Date End Date Diane Lugo MD [address] [place] [address] PCP - General Internal Medicine 08/24/21 06/06/22 Nu Wadsworth MD [address] [place] [address] PCP - General Internal Medicine 06/07/22 documented as of this encounter
--- OUTSIDE RECORDS SUMMARY | 2025-02-17 16:40 | XMS_ITS | Encounter Summary ---
Author Organization [facility] Address [address] [place] [address] Care Team Providers Care Classification Control Clerk Name Role Phone Donna Romero MD Primary Care Provider Unavail able Diane Lugo MD Primary Care Provider [phone] Nu Wadsworth MD Primary Care Provider [phone] Reason for Visit * Reason Onset Date Comments refill request 05/20/2021 Encounter Details Date Type Department Care Team Description 05/20/2021 Refill OBGYN - [place] [address] [place] [address] Radha Lacy, EBENEZER [address] [place] [address] refill request Social History Tobacco Use Types Packs/Day Years [...] encounter Miscellaneous Notes * Telephone Encounter - Gregoria Moura - 05/20/2021 4:15 PM EDT WHEN WAS THE PATIENTS LAST ANNUAL BRAND RECORDER EXAM? 12/24/19 Does patient have an upcoming appointment? Yes 08/05/21 (THE MEDICATION REQUESTED IS ON THE MED LIST ABOVE) Did you check the Pharmacy information above?: YES Indicate how soon the patient needs the script: SHAILA Patient would like script to be: E-PRESCRIBED/FAXED TO PHARMACY Is the doctor here today?: NO Can the message wait until the doctor returns?: NO Has the patient been told that the prescription will not be filled until the end of the day? NO Payor: [employer] / Plan: [employer] / Product Type: MEDICAID RISK documented in this encounter Plan of Treatment Not on file documented as of this encounter Visit Diagnoses Not on filedocumented in this encounter Care Teams Classification Control Clerk Relationship Specialty Start Date End Date Donna Romero MD PCP - General Internal Medicine 05/21/19 08/23/21 Diane Lugo MD [address] [place] [id number] PCP - General Internal Medicine 08/24/21 06/06/22 Nu Wadsworth MD [address] [place] [id number] PCP - General Internal Medicine 06/07/22 documented as of this encounter
--- OUTSIDE RECORDS SUMMARY | 2025-02-17 16:40 | XMS_ITS | Encounter Summary ---
Author Organization [facility] Address [address] [place] [address] Care Team Providers Care Brake Repairer Air Name Role Phone Slime Kendall MD Primary Care Provider Unavailab Donna Khan MD Primary Care Provider Unavail able Diane Lugo MD Primary Care Provider Nu Wadsworth MD Primary Care Provider [phone] Encounter Details Date Type Department Care Team Description 12/10/2013 Assayer Report Medical Records [address] [place] [id number] [place] Social History Tobacco Use Types Packs/Day Years Used Date Smoking Tobacco: Never Smokeless Tobacco: Never Comments:Mom smokes inside Alcohol [...] on file documented as of this encounter Plan of Treatment Not on file documented as of this encounter Visit Diagnoses Not on filedocumented in this encounter Care Teams Brake Repairer Air Relationship Specialty Start Date End Date Slime Kendall MD PCP - General 01/15/10 05/20/19 Donna Romero MD PCP - General Internal Medicine 05/21/19 08/23/21 Diane Lugo MD [address] [place] [id number] PCP - General Internal Medicine 08/24/21 06/06/22 Nu Wadsworth MD [address] [place] [id number] PCP - General Internal Medicine 06/07/22 documented as of this encounter
--- OUTSIDE RECORDS SUMMARY | 2025-02-17 16:40 | XMS_ITS | Encounter Summary ---
Author Organization [facility] Address [address] [place] [address] Care Team Providers Care Supervisor Abattoir Name Role Phone Slime Kendall MD Primary Care Provider Unavailab Donna Khan MD Primary Care Provider Unavail Diane Chen MD Primary Care Provider [phone] Nu Wadsworth MD Primary Care Provider Reason for Visit * Reason Onset Date Comments Behavior 08/04/2011 Encounter Details Date Type Department Care Team Description 08/04/2011 Telephone Pediatrics - [address] [address] Slime Kendall MD Behavior Social History Tobacco Use Types Packs/Day Years Used Date Smoking Tobacco: Never Smokeless Tobacco: Never Comments:Mom smokes inside Alcohol Use Standard Drinks/Week Comments Not Asked 0 (1 standard drink = 0.6 oz [...] encounter Miscellaneous Notes * Telephone Encounter - Slime Kendall MD - 08/04/2011 1:30 PM EDT I called and left a message at home for mom to call me back. I had referred pt to [facility] after her [facility] in March. I received notification from [facility] that they were not able to reach the family. Please try mom again later. documented in this encounter Plan of Treatment Not on file documented as of this encounter Visit Diagnoses Not on filedocumented in this encounter Care Teams Supervisor Abattoir Relationship Specialty Start Date End Date Slime Kendall MD PCP - General 01/15/10 05/20/19 Donna Romero MD PCP - General Internal Medicine 05/21/19 08/23/21 Diane Lugo MD [address] [place] [id number] PCP - General Internal Medicine 08/24/21 06/06/22 Nu Wadsworth MD [address] [place] [id number] PCP - General Internal Medicine 06/07/22 documented as of this encounter
--- OUTSIDE RECORDS SUMMARY | 2025-02-17 16:40 | XMS_ITS | Encounter Summary ---
Author Organization [facility] Address [address] [place] [address] Care Team Providers Care Tissue Technician Name Role Phone Slime Kendall MD Primary Care Provider Unavailab Donna Khan MD Primary Care Provider Unavail able Diane Lugo MD Primary Care Provider Nu Wadsworth MD Primary Care Provider [phone] Encounter Details Date Type Department Care Team Description 07/21/2018 Orders Only Pediatrics - [address] [address] Slime Kendall MD Screening examination for venereal disease (Primary Dx) Social History Tobacco Use Types Packs/Day Years [...] as of this encounter Plan of Treatment Scheduled Orders Name Type Priority Associated Diagnoses Orde r Schedule CHLAMYDIA DNA PROBE, URINE Lab Routine Screening examination for venereal disease Expected: 07/21/2018, Expires: 07/21/2019 GONORRHEA DNA PROBE, URINE Lab Routine Screening examination for venereal disease Expected: 07/21/2018, Expires: 07/21/2019 documented as of this encounter Visit Diagnoses Diagnosis Screening examination for venereal disease- Primary documented in this encounter Care Teams Tissue Technician Relationship Specialty Start Date End Date Slime Kendall MD PCP - General 01/15/10 05/20/19 Donna Romero MD PCP - General Internal Medicine 05/21/19 08/23/21 Diane Lguo MD [address] [place] [id number] PCP - General Internal Medicine 08/24/21 06/06/22 Nu Wadsworth MD [address] [place] [phone] PCP - General Internal Medicine 06/07/22 documented as of this encounter
--- OUTSIDE RECORDS SUMMARY | 2025-02-17 16:40 | XMS_ITS | Encounter Summary ---
Author Organization [facility] Address [address] [place] [address] Care Team Providers Care Flooring Professional Name Role Phone Slime Kendall MD Primary Care Provider Unavailab Donna Khan MD Primary Care Provider Unavail Diane Chen MD Primary Care Provider [phone] Nu Wadsworth MD Primary Care Provider [phone] Reason for Visit * Reason Onset Date Comments DCF 11/27/2013 Encounter Details Date Type Department Care Team Description 11/27/2013 Telephone Pediatrics - [address] [address] Slime Kendall MD DCF Social History Tobacco Use Types Packs/Day Years [...] encounter Miscellaneous Notes * Telephone Encounter - Danyell Parada R.N. - 11/27/2013 2:17 PM EST Information given on last pe and sick visit-fyi * Telephone Encounter - Radha Nirav - 11/27/2013 2:08 PM EST DCF returning phone call, please call again. * Telephone Encounter - Danyell Parada R.N. - 11/27/2013 2:06 PM EST Left message * Telephone Encounter - Betsy Amezquita - 11/27/2013 1:27 PM EST Name and title of caller: Terri [phone] : 1995 Age: 18 yr. Is this an active 51A case: Yes. Case is currently active. Message forwarded to nurse to provide information. Message forwarded to nurse for follow up documented in this encounter Plan of Treatment Not on file documented as of this encounter Visit Diagnoses Not on filedocumented in this encounter Care Teams Flooring Professional Relationship Specialty Start Date End Date Slime Kendall MD PCP - General 01/15/10 05/20/19 Donna Romero MD PCP - General Internal Medicine 05/21/19 08/23/21 Diane Lugo MD [address] [place] [id number] PCP - General Internal Medicine 08/24/21 06/06/22 Nu Wadsworth MD [address] [place] [id number] PCP - General Internal Medicine 06/07/22 documented as of this encounter
--- OUTSIDE RECORDS SUMMARY | 2025-02-17 16:40 | XMS_ITS | Clinical Summary ---
Author Organization [place] [address] [facility] Building Address [address] [place] [phone] Phone Care Team Providers Care Log Marker Name Role Phone Nu Wadsworth MD Primary Care Provider [phone] Allergies Active Allergy Reactions Criticality Noted Date Comments [place] 02/21/2009 Other Reaction(s): Hives/Urticaria Medications buPROPion (WELLBUTRIN) [...] obesity with BMI of 5 0.0-59.9, adult (CMS/[facility] V24, CMS/[facility] V28) 10/30/2024 Yeast infection of the skin 07/07/2023 Overview (10/30/2024): Last Assessment & Plan: Rx nystatin for suspected yeast infection of bilateral axilla. If rash does not improve, recommend f/u with PCP Anxiety 12/10/2020 Mild intermittent asthma 05/22/2019 Major depression, recurrent (CMS/HCC V24) 2011 Overview (10/30/2024): Admitted at [facility] 08/11. D/c on Zoloft 50 mg daily for a week, then increase to 75 mg, individual and family counseling 10/12: counselor at [facility], started on prozac 07/15: therapist through [facility] waitlist for meds 07/16: therapist: [facility] Nelson boyer 07/18: [employer] therapist once a week. Encounters Date Type Department Care Team Description 01/01/2025 3:30 PM EST Clinic Lab Collection Walk-In [facility] - [address] [address] Pre-employment drug screening (Primary Dx) from Last 3 Months Immunizations Name Administration Dates Next Due DTaP (Infanrix) 6wks to less than 7yo ,07/31/1999,05/27/1998,03/10,01/06/1998 WEmE-DNS-DAM (Pentacel) 2mo to less than 5yo 07/31/1999,05/27/1998,03/10/1998,01/06 [...] Medical History Date Comments Major depression, recurrent ([facility] V24) 08/14/2012 DX:Major depression, recurre nt ([facility]) Asthma DX:Asthma History of sexual [...] RESULTING AGENCY - 12/26/2019 11:16 AM EST [id number] THINPREP PAP, IMAGED: NEGATIVE FOR SQUAMOUS INTRAEPITHELIAL [...] Health Maintenance Insurance [employer] Care Teams Log Marker Relationship Specialty Start Date End Date Nu Wadsworth MD PCP - General Internal Medicine 06/07/22
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
--- OUTSIDE RECORDS SUMMARY | 2025-02-17 16:40 | XMS_ITS | Encounter Summary ---
Author Organization [facility] Address [address] [place] [address] Care Team Providers Care Bag Turner Name Role Phone Slime Kendall MD Primary Care Provider Unavailab Donna Khan MD Primary Care Provider Unavail able Diane Lugo MD Primary Care Provider [phone] Nu Wadsworth MD Primary Care Provider [phone] Reason for Visit * Reason Onset Date Comments Form 09/17/2011 Encounter Details Date Type Department Care Team Description 09/17/2011 Telephone Pediatrics - [address] [address] Slime Kendall MD Form Social History Tobacco Use Types Packs/Day Years [...] Telephone Encounter - Slime Kendall MD - 09/17/2011 5:29 PM EST Form filled out and put in the to be faxed folder * Telephone Encounter - Aruna Langston - 09/17/2011 3:33 PM EST Pediatric Form Request Type of form: [facility] PCP Communication form - placed in provider's MAIL folder. Date of last physical: 04/28/11 Does patient want: Fax to other office/MD at fax # [phone] documented in this encounter Plan of Treatment Not on file documented as of this encounter Visit Diagnoses Not on filedocumented in this encounter Care Teams Bag Turner Relationship Specialty Start Date End Date Slime Kendall MD PCP - General 01/15/10 05/20/19 Donna Romero MD PCP - General Internal Medicine 05/21/19 08/23/21 Diane Lugo MD [address] [place] [id number] PCP - General Internal Medicine 08/24/21 06/06/22 Nu Wadsworth MD [address] [place] [id number] PCP - General Internal Medicine 06/07/22 documented as of this encounter
--- OUTSIDE RECORDS SUMMARY | 2025-02-17 16:40 | XMS_ITS | Encounter Summary ---
Author Organization [facility] Address [address] [place] [address] Care Team Providers Care Research Instructor Name Role Phone Donna Romero MD Primary Care Provider Unavail able Diane Lugo MD Primary Care Provider [phone] Nu Wadsworth MD Primary Care Provider [phone] Encounter Details Date Type Department Care Team Description 01/01/2020 [facility] Medical Records [address] [place] [address] Abstract, Provider Social History Tobacco Use Types Packs/Day Years [...] on filedocumented in this encounter Care Teams Research Instructor Relationship Specialty Start Date End Date Donna Romero MD PCP - General Internal Medicine 05/21/19 08/23/21 Diane Lugo MD [address] [place] [id number] PCP - General Internal Medicine 08/24/21 06/06/22 Nu Wadsworth MD [address] [place] [address] PCP - General Internal Medicine 06/07/22 documented as of this encounter
--- OUTSIDE RECORDS SUMMARY | 2025-02-17 16:40 | XMS_ITS | Encounter Summary ---
Author Organization [facility] Address [address] [place] [address] Care Team Providers Care Balance Wheel Facer Name Role Phone Nu Wadsworth MD Primary Care Provider [phone] Reason for Visit * Reason Onset Date Comments Faxed Refill 10/14/2022 Encounter Details Date Type Department Care Team Description 10/14/2022 Refill Adult Medicine [address] [address] Ariana Fabian PA-C Faxed Refill Social History Tobacco Use Types Packs/Day Years [...] encounter Miscellaneous Notes * Telephone Encounter - Miladis Ardon M.A. - 10/14/2022 3:18 PM EST Pt with dx of Mild intermittent asthma. Set up for covered inhaler. Please sign. * Telephone Encounter - Nu Wadsworth MD - 10/14/2022 3:01 PM EST What is covered by patient's insurance ? * Telephone Encounter - Grover Bacon M.A. - 10/14/2022 2:49 PM EST Last ov 101 next ov 11/15/2022 Lab Results Component Value Date NA 137 11/13/2021 K 4.4 11/13/2021 CO2 25 11/13/2021 CL 106 11/13/2021 BUN 7 11/13/2021 CREAT 0.80 11/13/2021 GLU 96 11/13/2021 CA 9.2 11/13/2021 GFR > 60 11/13/2021 documented in this encounter Plan of Treatment Not on file documented as of this encounter Visit Diagnoses Not on filedocumented in this encounter Care Teams Balance Wheel Facer Relationship Specialty Start Date End Date Nu Wadsworth MD [address] [place] [id number] PCP - General Internal Medicine 06/07/22 documented as of this encounter
--- OUTSIDE RECORDS SUMMARY | 2025-02-17 16:40 | XMS_ITS | Encounter Summary ---
Author Organization [facility] Address [address] [place] [address] Care Team Providers Care Diversified Crops Supervisor Name Role Phone Nu Wadsworth MD Primary Care Provider [phone] Encounter Details Date Type Department Care Team Description 11/24/2023 Refill Adult Medicine [facility] [address] [place] [address] Ghassan Mahoney PA-C [address] [place] [address] Social History Tobacco Use Types Packs/Day Years Used Date Smoking Tobacco: Never Passive Smoke Exposure: Yes Smokeless Tobacco: Never Comments:Mom smokes inside Alcohol [...] Telephone Encounter - Miladis Ardon M.A. - 11/24/2023 9:59 AM EST Last office visit 09/15/23 Next office visit 06/18/24 Mallorie, Called the pharmacy. They claim they never received the rx from 09/16/23. Will you sign? Lab Results Component Value Date ALB 3.7 11/13/2021 SGOT 23 11/13/2021 SGPT 52 11/13/2021 TBILI 0.3 11/13/2021 ALKPHOS 124 11/13/2021 TP 7.2 11/13/2021 documented in this encounter Plan of Treatment Not on file documented as of this encounter Visit Diagnoses Not on filedocumented in this encounter Care Teams Diversified Crops Supervisor Relationship Specialty Start Date End Date Nu Wadsworth MD [address] [place] [id number] PCP - General Internal Medicine 06/07/22 documented as of this encounter
[2025-02-17 16:48] LABS: Alanine Aminotransferase 28 U/L (0-31); Alkaline Phosphatase 117 U/L (39-117); Anion Gap 13 (12-20); Aspartate Amino Transferase 32 U/L (5-31); Basophils Absolute Auto 0.1 X10*3/uL (0.0-0.2); Basophils Percent Auto 0.4 % (0-2); Bilirubin Total 0.7 mg/dL (0.0-1.0); Blood Urea Nitrogen 10 mg/dL (9-16); Calcium 9.1 mg/dL (8.4-10.2); Carbon Dioxide 20 mmol/L (22-29); Chloride 108 mmol/L (96-108); Creatinine Clr Calc Pharmacy 143.9; Eosinophils Percent Auto 0.1 % (0-4); Estimated Glomerular Filt Rate > 60; Glucose Random 129 mg/dL (60-115); Hematocrit 39.1 % (37.0-47.0); Imm Gran Pct Auto 0.5 % (0.0-0.4); Lymphocytes Absolute Auto 2.2 X10*3/uL (1.2-4.9); Lymphocytes Percent Auto 11.4 % (20-40); Mean Corpuscular HGB Conc 33.2 g/dl (31.0-35.0); Mean Corpuscular Hemoglobin 26.9 pg (27.0-33.0); Mean Platelet Volume 9.6 fL (9.4-12.3); Monocytes Absolute Auto 0.8 X10*3/uL (0.1-1.2); Monocytes Percent Auto 4.1 % (2-11); Neutrophils Absolute Auto 15.9 x10*3/uL (2.0-8.3); Neutrophils Percent Auto 83.5 % (45-73); Platelet Count 415 X10*3/uL (160-400); Potassium 4.1 mmol/L (3.3-5.1); Red Blood Count 4.83 X10*6/uL (4.20-5.50); Red Cell Distribution Width 13.5 % (11.0-16.0); Sodium 137 mmol/L (135-145); Total Protein 6.9 g/dL (6.5-8.0)
[2025-02-17 18:00] VITALS: BP 141/89; PULSE 96; RESP 18; O2SAT 98
[2025-02-17 18:35] LABS: HCG Quantitative < 2 mIU/mL
--- NOTE | 2025-02-17 19:03 | PC.NURSE ---
Report given at this time. Informed RN that pt's needs IV and meds.
[2025-02-17] MEDS: 0.9 % Sodium Chloride 1,000 ML 999 ML IV (19:53)
[2025-02-17] MEDS: Ketorolac Tromethamine 30 MG/ML VIAL IVPUSH (20:01)
[2025-02-17 21:06] VITALS: BP 131/92; PULSE 97; RESP 16; TEMP 36.7; O2SAT 98
--- NOTE | 2025-02-17 21:07 | PC.NURSE ---
Urine sample obtained and sent down to lab. Iv infusion infusing. VSS. pain reassessed pt report 2/10 pain at this time. Plan of care on going
[2025-02-17 21:16] LABS: Appearance Urine Clear; Color Urine Yellow; Glucose Urine UA Negative (Negative); Leukocyte Esterase Urine Small (1+) (Negative); Nitrite Urine Negative (Negative); PH 5.5 (5.0-9.0); Specific Gravity - Urine 1.025 (1.005-1.025); UMIC TRIGGER UACC YES; UPreg QC Valid YES; Urine Blood Moderate (2+) (Negative); Urine Ketones 15 mg/dL (Negative); Urine Pregnancy NEGATIVE (NEGATIVE); Urine Protein Negative (Neg-Trace)
[2025-02-17 21:21] LABS: Bacteria Urine 2+ (None Seen); Hyaline Casts Urine 0-2 /LPF (0-2); UACC Culture Trigger YES
[2025-02-17] MEDS: cefuroxime axetiL 250 MG TABLET PO (22:09)
[2025-02-17 22:16] VITALS: BP 146/83; PULSE 93; RESP 16; TEMP 36.6; O2SAT 98
== END 2025-02-17 22:40 | disposition home or self-care (01) ==
PROVIDERS: Nurse Practitioner Family; Physician Assistant; Emergency Provider Emergency Medicine; PCP Internal Medicine
DX: N13.2 Hydronephrosis with renal and ureteral calculous obstruction (principal); R10.9 Unspecified abdominal pain
CPT/HCPCS: 36415; 74176; 80053; 81001; 81025; 84702; 85025; 87086; 96374; 99284; 99285; J1885

== ENCOUNTER → 2025-02-17 18:10 | Outpatient (BNV) | payer OTHER, SELFPAY | PROVIDERS: Emergency Provider Emergency Medicine; PCP Internal Medicine; Visit Provider Student in an Organized Health Care Education/Training Program | DX: N13.0 Hydronephrosis with ureteropelvic junction obstruction (principal); K80.80 Other cholelithiasis without obstruction | CPT/HCPCS: 74176 ==

== ENCOUNTER 2025-05-02 12:53 | Outpatient (REF) | payer OTHER, SELFPAY ==
[2025-05-02 16:38] LABS: Alanine Aminotransferase 53 U/L (0-31); Albumin Level 4.3 g/dL (3.5-5.0); Alkaline Phosphatase 113 U/L (39-117); Aspartate Amino Transferase 39 U/L (5-31); Cholesterol 166 mg/dL (<200); HDL Cholesterol 38 mg/dL (>40); Total Protein 7.1 g/dL (6.5-8.0); Triglycerides 95 mg/dL (<150)
== END 2025-05-02 12:54 | disposition home or self-care (01) ==
LOC: HO.HMGCLDS 12:53
PROVIDERS: PCP Internal Medicine; Visit Provider Internal Medicine
DX: Z00.01 Encounter for general adult medical examination with abnormal findings (principal); E66.01 Morbid (severe) obesity due to excess calories; Z68.43 Body mass index [BMI] 50.0-59.9, adult; F43.10 Post-traumatic stress disorder, unspecified; J45.20 Mild intermittent asthma, uncomplicated; R10.11 Right upper quadrant pain; Z13.220 Encounter for screening for lipoid disorders; Z13.1 Encounter for screening for diabetes mellitus; Z13.31 Encounter for screening for depression; Z13.30 Encounter for screening examination for mental health and behavioral disorders, unspecified
CPT/HCPCS: 36415; 80061; 80076; 82306; 82947; 96127

== ENCOUNTER 2025-05-02 12:53 | Outpatient (AMB) | payer OTHER, SELFPAY ==
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
--- NOTE | 2025-05-02 13:02 | MHC.PC.OV ---
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 Intake Note: Pt is here today as a New Patient to est care/ PE Is last menstrual period known: Yes Last menstrual period: 05/01/25 Allergies strawberry (STRAWBERRY) Allergy (Intermediate, Verified 05/02/25 13:18) RASH Medication List - Last Reconciled 05/02/25 by Komal Mahajan MD acetaminophen (Tylenol Extra Strength) 500 mg PO Q6H PRN albuterol sulfate 90 mcg/actuation 2 puffs inhalation Q6H PRN desog-e.estradiol/e.estradiol 0.15-0.02 mgx21 /0.01 mg x 5 1 tab PO DAILY ibuprofen 600 mg PO Q8H PRN Tobacco use date assessed: 05/02/25 Dental Screening Dental Screen Date: 05/02/25 Did you have a dental visit in the last 12 months?: Yes Did you have a dental problem in the last 6 months where you did not have access to dental care?: No Was dental information given to patient?: Patient has dentist HPI 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 Currently being seen by therapist, previously once on our PTSD but patient stopped in the medication as she states that she has gained a lot of it on the medication. She has also been on hormonal contraceptives in the past previously on Nexplanon which could also could have contributed to her weight gain. She was previously being seen by product management specialist , needs a referral to OBGYN. She is interested in getting started on medication to help her weight loss, has not tried anything in the past but has been following a healthy diet and has started exercising on a regular basis. Still now notes for weight loss despite changing her lifestyle. [facility] Medical History (Updated 05/05/25 @ 16:38 by Komal Mahajan MD) Mild intermittent asthma Asthma Surgical History (Updated 05/02/25 @ 13:22 by Komal Mahajan MD) History of wisdom tooth extraction Family History (Updated 05/02/25 @ 13:26 by Komal Mahajan MD) Mother Cervical cancer Substance use disorder Anxiety and depression Father Substance use disorder Sister Bipolar disorder Asthma Maternal Grandmother Anxiety and depression Maternal Grandfather Essential hypertension Social History (Updated 01/01/25 @ 10:38 by Houston Arevalo CMA) Housing: House Alcohol intake: never Patient Tobacco Use Status: Never used Tobacco e-Cigarette/Vaping Use: Never Used service: No Current occupational status: employed Cognitive needs: No Hearing needs: No Vision needs: Yes Female Reproductive History Menstrual Age of Menarche: 13 Date of last menstrual period: 05/01/25 Questionnaire PHQ-9 Over the last 2 weeks, how often have you been bothered by any of the following problems? 1. Little interest or pleasure in doing things: several days 2. Feeling down, depressed, or hopeless: several days 3. Trouble falling or staying asleep, or sleeping too much: not at all 4. Feeling tired or having little energy: several days 5. Poor appetite or overeating: not at all 6. Feeling bad about yourself - or that you are a failure or have let yourself or your family down: not at all 7. Trouble concentrating on things, such as reading the newspaper or watching television: several days 8. Moving or speaking so slowly that other people could have noticed. Or the opposite - being so fidgety or restless that you have been moving around a lot more than usual: not at all 9. Thoughts that you would be better off or of hurting yourself in some way: not at all Total score: 4 Depression Screening Interpretation: Positive (Currently being seen by a therapist, but stopped taking Wellbutrin ) Depression Screening Follow-up: Existing condition, In treatment and Community Mental Health Worker F/U Depression Screening Done: Yes 15053 - PHQ-9 Billing: Yes Source: Developed by Drs. Manuelito Lopez, Aniya Leavitt, Jaswant Alcaraz and colleagues, with an educational stephy from [employer]. Thrive Questionnaire Date Thrive assessed: 04/25/25 I am a: Patient What is your living situation today?: I have a steady place to live Within the past 12 months, did the food you bought not last and you didn't have the money to get more?: Never true Within the past 12 months, did you worry whether your food would run out before you got money to buy more?: Never true Do you have trouble paying for medicines?: No Do you have trouble getting transportation to medical appointments?: No Do you have trouble paying your heating and electricity bill?: No Do you have trouble taking care of your child, family member or friend?: No Do you have trouble with day-to-day activities such as bathing, preparing meals, shopping, managing finances, etc.?: No Are you currently unemployed and looking for a job?: No Are you interested in more education?: No Please select the resources that you would like help with: None Currently or been in a relationship where the following occur: No concerns reported THRIVE Score: 0 AUDIT C Alcohol Use Questionnaire (AUDIT-C) 1. How often do you have a drink containing alcohol?: Monthly or less 2. How many drinks containing alcohol do you have on a typical day when you are drinking?: 1 or 2 3. How often do you have six or more drinks on one occasion?: Never Total Score: 1 SHERLEY-7 AMB Questionnaire SHERLEY-7 Date SHERLEY - 7 assessed: 05/02/25 Feeling nervous, anxious, or on edge: 3 = Nearly every day Not being able to stop or control worryin = More than half the days Worrying too much about different things: 2 = More than half the days Trouble relaxin = Several days Being so restless that it is hard to sit still: 1 = Several days Becoming easily annoyed or irritable: 1 = Several days Feeling afraid as if something awful might happen: 1 = Several days Total SHERLEY-7 score (0-4 normal; 5-9 mild; 10-14 moderate; 15-21 severe): 11 Source: Developed by Drs. Manuelito Lopez, Aniya Leavitt, Jaswant Alcaraz and colleagues, with an educational stephy from [employer]. SHERLEY-7 Assessment Billing SHERLEY-7 Assessment Tool: SHERLEY-7 Assessment 44376 Review of Systems Const Reports as per HPI and Reports no additional complaints Eyes Details: sees Dr Erwin ENT Reports no additional complaints Card Denies chest pain at rest, Denies chest pain with activity, Denies rapid heart rate, Denies dyspnea and Denies dyspnea on exertion Resp Denies chest congestion, Denies cough, Denies dyspnea, Denies dyspnea on exertion and Reports wheezing (Occasional especially during exercise) GI Reports no additional complaints Reports no additional complaints Musc Reports no additional complaints Skin/Breast Denies breast pain, Denies breast mass, Denies lesions and Denies rash Neuro Reports no additional complaints Psych Reports no additional complaints Endo Reports no additional complaints Fredrick/Lymph Reports no additional complaints Aller/Immun Reports wheezing (Occasional especially during exercise) Physical exam (Primary Care) Vital Signs: Last Vital Signs Pulse 94 05/02/25 13:05 Resp 15 05/02/25 13:05 BP 100/70 05/02/25 13:05 Pulse Ox 99 05/02/25 13:05 Oxygen Delivery Method Room Air 05/02/25 13:05 BMI result Body Mass Index 56.6 Tobacco/Smoking Status: Tobacco use Status Tobacco use date assessed 05/02/25 05/02/25 13:08 Patient Tobacco Use Status Never used Tobacco 05/02/25 13:08 e-Cigarette/Vaping Use Never Used 05/02/25 13:08 PHQ-9: PHQ-9 Score PHQ-9: Total score 4 05/02/25 13:48 Depression Screening Interpretation: Positive (Currently being seen by a therapist, but stopped taking Wellbutrin ) Depression Screening Follow-up: Existing condition, In treatment and Community Mental Health Worker F/U Thrive Assessment: Date of Thrive Assessment Date Thrive assessed 04/25/25 05/02/25 13:08 Currently or been in a relationship where the following occur: No concerns reported Const General: no acute distress and alert Orientation/consciousness: patient oriented x3 HENMT Head: Yes normocephalic Ears: external ears normal, TM's normal bilaterally and EAC's normal General nose exam: Normal external nose present and No nasal discharge present Face and sinus: Yes face symmetric Mouth: Normal oral and palatal mucosa present and moist mucous membranes Eyes General: appearance normal, both eyes and all related structures Conjunctivae: conjunctivae normal Sclerae: sclerae normal Pupils: Equal, round and reactive pupils present EOM: EOMs intact bilaterally Neck Neck: Yes full ROM, Yes no lymphadenopathy and Yes supple Thyroid: Thyroid normal Chest Breast/axilla inspection: normal inspection of the breasts Breast/axilla palpation: normal palpation of the breasts Resp Effort & Inspection: normal respiratory effort and able to speak in complete sentences Auscultation: clear to auscultation bilaterally Cardio Rate: regular rate Rhythm: regular rhythm Heart sounds: S1 normal heart sound present and S2 normal heart sound present GI Palpation (GI): Soft to palpation, nontender, no guarding and no masses Auscultation: normal bowel sounds General: Yes no CVA tenderness Back/Spine/Pelvis Back: no CVA tenderness and No back tenderness Skin General skin exam: no rashes or lesions noted Neuro General: patient oriented x3, gait normal, moves all extremities, Normal light touch and pain sensation, no focal motor deficits and CN's II-XI intact bilaterally Cranial nerves: Yes Equal, round and reactive pupils present Cognition (Neuro): normal cognition Gait exam (Neuro): Normal gait present Motor exam (neuro): 5/5 motor strength present throughout Extrem General: Yes normal to inspection, Yes full ROM, Yes no joint enlargement, Yes no pedal edema and Yes normal gait Psych Appearance: grossly normal and well kempt Mental Status: mental status grossly normal Speech and movement: Normal speech and movement present Affect: normal affect Coding Level of Care Code New Pt Prev Care 18-39yr([id number] Diagnoses Annual visit for general adult medical examination with abnormal findings Z00. Obesity, morbid, BMI 50 or higher E66.01 Post traumatic stress disorder (PTSD) F43.10 Mild intermittent asthma without complication J45.20 Asthma complication type: uncomplicated Additional Codes PHQ-9 - 18271 - PHQ-9 Billing: Yes ([id number]) SHERLEY-7 Assessment Billing - SHERLEY-7 Assessment Tool: SHERLEY-7 Assessment 48372 ([id number]) Assessment & Plan Assessment & Plan (1) Annual visit for general adult medical examination with abnormal findings: Code(s): Z00.01 - Encounter for general adult medical examination with abnormal findings Plan: Will check appropriate labs. Recommended dental visit every 6 months and continue regular eye exams, sees Dr. Erwin. Take adequate calcium in diet and vitamin-D 3 at 2000 IU per cap once a day, in addition to weight-bearing exercises to help maintain good muscle tone and weight control. Instructed to do self-breast exam, and recommended to get yearly mammogram, starting at age 40. Referred to OBGYN to get her cervical cancer screening, pelvic exam and monitoring of control pills. (2) Obesity, morbid, BMI 50 or higher: Code(s): E66.01 - Morbid (severe) obesity due to excess calories Category: Medical Plan: Will try on phentermine 15 mg per tablet to take 1 tablet 2 hours after breakfast. Reinforced importance of combining this with healthy eating habits and doing at least 30 minutes of moderate intensity exercise 3 to 4 times a week. Return to clinic for follow-up in a month after starting phentermine (3) Post traumatic stress disorder (PTSD): Comment: Slime rosa , previously on well butrin , stopped due to weight gain Code(s): F43.10 - Post-traumatic stress disorder, unspecified Category: Medical Plan: Currently followed by therapist, does not want to start any medication at present time (4) Mild intermittent asthma: Code(s): J45.20 - Mild intermittent asthma, uncomplicated Category: Medical Qualifiers: Asthma complication type: uncomplicated Qualified Code(s): J45.20 - Mild intermittent asthma, uncomplicated Plan: Refill prescription sent for albuterol inhaler, 2 inhalations every 6 hours as needed for episodes of bronchospasm and wheezing. Reminded to get her yearly flu shot and recommend getting updated pneumonia vaccine Orders: Orders Vitamin D 25-OH Total 05/02/25 Z13.1 - Encounter for screening for diabetes mellitus, Z13.220 - Encounter for screening for lipoid disorders Glucose Fasting 05/02/25 Z13.1 - Encounter for screening for diabetes mellitus, Z13.220 - Encounter for screening for lipoid disorders Lipid Panel 05/02/25 Z13.1 - Encounter for screening for diabetes mellitus, Z13.220 - Encounter for screening for lipoid disorders Liver Panel 05/02/25 R10.11 - Right upper quadrant pain Referrals FACILITY ADMINISTRATOR Referral Z12.4 - Encounter for screening for malignant neoplasm of cervix Medications: New albuterol sulfate 90 mcg/actuation 2 puffs inhalation Q6H PRN 8.5 grams 5RF shortness of breath or wheezing phentermine must administer 2 hours after breakfast 15 mg PO DAILY 30 caps 0RF
[2025-05-02 13:05] VITALS: BP 100/70; PULSE 94; RESP 15; O2SAT 99; BMI 56.6
== END 2025-05-02 13:51 | disposition home or self-care (01) ==
LOC: HO.HMCC 12:53
PROVIDERS: PCP Internal Medicine; Visit Provider Internal Medicine
DX: Z00.01 Encounter for general adult medical examination with abnormal findings (principal); E66.01 Morbid (severe) obesity due to excess calories; Z68.43 Body mass index [BMI] 50.0-59.9, adult; F43.10 Post-traumatic stress disorder, unspecified; J45.20 Mild intermittent asthma, uncomplicated

== ENCOUNTER 2025-06-13 15:39 | Outpatient (AMB) | payer OTHER, SELFPAY ==
[2025-06-13 15:42] VITALS: BP 100/80; PULSE 86; RESP 16; TEMP 36.7; O2SAT 99; BMI 55.9
--- NOTE | 2025-06-13 15:42 | A.OFFPC_ITS ---
Vital Signs 06/13/25 15:42 Height 5 ft 5 in Weight 336 lb BMI 55.9 BP 100/80 Blood Pressure Location Lt brachial Position Sitting Respiration 16 Pulse 86 Pulse Source Pulse Oximeter Temp 98.0 F Temp Source Oral Pulse Oximetry (%) 99 Oxygen Delivery Method Room Air Intake Visit Reasons: 1m follow up Allergies strawberry (STRAWBERRY) Allergy (Intermediate, Verified 06/13/25 16:29) RASH Medication List - Last Reconciled 06/13/25 by Komal Mahajan MD acetaminophen (Tylenol Extra Strength) 500 mg PO Q6H PRN albuterol sulfate 90 mcg/actuation 2 puffs inhalation Q6H PRN desog-e.estradiol/e.estradiol 0.15-0.02 mgx21 /0.01 mg x 5 1 tab PO DAILY ibuprofen 600 mg PO Q8H PRN phentermine 15 mg PO DAILY Tobacco use date assessed: 06/13/25 Dental Screening Dental Screen Date: 06/13/25 Did you have a dental visit in the last 12 months?: Yes Did you have a dental problem in the last 6 months where you did not have access to dental care?: Yes Was dental information given to patient?: Patient has dentist HPI 1m follow up HPI Details - The patient is a 29-year-old female pr esenting for follow-up regarding weight loss after starting phentermine. Reports dry mouth is not bothersome , after starting the medication. Other than that, she is tolerating the medication but only had a 4 lb weight loss since starting it. - The patient has not initiated any [facility] dietary changes but has been advised to see a interior design principal. - has a skin abrasion in the left axilla ry area , did not initially cause discomfort but has been noted to cause soreness intermittently. [facility] Medical History (Updated 06/16/25 @ 17:29 by Komal Mahajan MD) Morbid obesity with BMI of 50.0-59.9, adult Mild intermittent asthma Asthma Surgical History History of wisdom tooth extraction Family History Mother Cervical cancer Substance use disorder Anxiety and depression Father Substance use disorder Sister Bipolar disorder Asthma Maternal Grandmother Anxiety and depression Maternal Grandfather Essential hypertension Social History Housing: House Alcohol intake: never Patient Tobacco Use Status: Never used Tobacco e-Cigarette/Vaping Use: Never Used service: No Current occupational status: employed Cognitive needs: No Hearing needs: No Vision needs: Yes Female Reproductive History Menstrual Age of Menarche: 13 Questionnaire Thrive Questionnaire Date Thrive assessed: 04/25/25 I am a: Patient What is your living situation today?: I have a steady place to live Within the past 12 months, did the food you bought not last and you didn't have the money to get more?: Never true Within the past 12 months, did you worry whether your food would run out before you got money to buy more?: Never true Do you have trouble paying for medicines?: No Do you have trouble getting transportation to medical appointments?: No Do you have trouble paying your heating and electricity bill?: No Do you have trouble taking care of your child, family member or friend?: No Do you have trouble with day-to-day activities such as bathing, preparing meals, shopping, managing finances, etc.?: No Are you currently unemployed and looking for a job?: No Are you interested in more education?: No Please select the resources that you would like help with: None Currently or been in a relationship where the following occur: No concerns reported THRIVE Score: 0 SHERLEY-7 AMB Questionnaire SHERLEY-7 Date SHERLEY - 7 assessed: 05/02/25 Source: Developed by Drs. Manuelito Lopez, Aniya Leavitt, Jaswant Alcaraz and colleagues, with an educational stephy from [employer]. Review of Systems Const Reports no additional complaints Eyes Details: sees Dr Hernandez ENT Reports no additional complaints Card Denies chest pain at rest, Denies chest pain with activity, Denies rapid heart rate, Denies dyspnea and Denies dyspnea on exertion Resp Denies chest congestion, Denies cough, Denies dyspnea and Denies dyspnea on exertion GI Reports no additional complaints Reports no additional complaints Musc Reports no additional complaints Skin/Breast Reports as per HPI Neuro Reports no additional complaints Psych Reports no additional complaints Endo Reports no additional complaints Fredrick/Lymph Reports no additional complaints Physical exam (Primary Care) Vital Signs: Last Vital Signs Temp 98.0 F 06/13/25 15:42 Pulse 86 06/13/25 15:42 Resp 16 06/13/25 15:42 BP 100/80 06/13/25 15:42 Pulse Ox 99 06/13/25 15:42 Oxygen Delivery Method Room Air 06/13/25 15:42 BMI result Body Mass Index 55.9 Tobacco/Smoking Status: Tobacco use Status Tobacco use date assessed 06/13/25 06/13/25 15:47 Patient Tobacco Use Status Never used Tobacco 06/13/25 15:47 e-Cigarette/Vaping Use Never Used 06/13/25 15:47 Thrive Assessment: Date of Thrive Assessment Date Thrive assessed 04/25/25 06/13/25 15:47 Currently or been in a relationship where the following occur: No concerns reported Const General: no acute distress and alert Orientation/consciousness: patient oriented x3 HENMT Face and sinus: Yes face symmetric Mouth: Normal oral and palatal mucosa present and moist mucous membranes Neck Neck: Yes full ROM, Yes no lymphadenopathy and Yes supple Thyroid: Thyroid normal Chest Breast/axilla inspection: normal inspection of the breasts Breast/axilla palpation: normal palpation of the breasts Resp Effort & Inspection: normal respiratory effort and able to speak in complete sentences Auscultation: clear to auscultation bilaterally Cardio Rate: regular rate Rhythm: regular rhythm Heart sounds: S1 normal heart sound present and S2 normal heart sound present GI Palpation (GI): Soft to palpation, nontender, no guarding and no masses Auscultation: normal bowel sounds Skin Other: Dry abrasion left axillary area, nontender Neuro General: patient oriented x3, gait normal, moves all extremities, Normal light touch and pain sensation and no focal motor deficits Cognition (Neuro): normal cognition Gait exam (Neuro): Normal gait present Motor exam (neuro): 5/5 motor strength present throughout Extrem General: Yes normal to inspection, Yes full ROM, Yes no joint enlargement, Yes no pedal edema and Yes normal gait Psych Appearance: grossly normal and well kempt Mental Status: mental status grossly normal Speech and movement: Normal speech and movement present Affect: normal affect Coding Level of Care Code Est Pt Level 4 (50788) Diagnoses Morbid obesity with BMI of 50.0-59.9, adult E66.01; Z68.43 Abrasion of left axilla, initial encounter S40.812A Encounter type: initial encounter Assessment & Plan Assessment & Plan (1) Morbid obesity with BMI of 50.0-59.9, adult: Code(s): E66.01 - Morbid (severe) obesity due to excess calories; Z68.43 - Body mass index [BMI] 50.0-59.9, adult Category: Medical (2) Abrasion of left axilla: Code(s): S40.812A - Abrasion of left upper arm, initial encounter Qualifiers: Encounter type: initial encounter Qualified Code(s): S40.812A - Abrasion of left upper arm, initial encounter Plan The patient will be advised to increase the medication dosage to 30 mg, taken two hours after breakfast, and to follow up with a interior design principal for dietary management. For the skin abrasion, the patient will be provided with bacitracin ointment , to apply twice daily for five to seven days, and advised to avoid s having the area until healed. A follow-up appointment is recommended in four weeks to assess the response to the increased medication dosage and to evaluate the healing of the skin abrasion. Patient was informed and verbally consented to the use of an ambient scribe for clinic note documentation during this visit. Medications: New phentermine must administer 2 hours after breakfast 30 mg PO DAILY 30 caps 0RF E66.01 - Morbid (severe) obesity due to excess calories Discontinued phentermine must administer 2 hours after breakfast Discontinued Reason: Doctor's Order 15 mg PO DAILY 30 caps 0RF
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
--- OUTSIDE RECORDS SUMMARY | 2025-06-13 15:59 | XMS_ITS ---
Author Name [facility] Organization Unknown Care Team Organization Name Specialty Phone Email Start Date End Da te [facility] 01/05/2023 024 [facility] Diane [facility] 09/07/2022
== END 2025-06-13 16:44 | disposition home or self-care (01) ==
LOC: HO.HMCC 15:40
PROVIDERS: PCP Internal Medicine; Visit Provider Internal Medicine
DX: E66.01 Morbid (severe) obesity due to excess calories (principal); Z68.43 Body mass index [BMI] 50.0-59.9, adult; S40.812A Abrasion of left upper arm, initial encounter

== ENCOUNTER 2025-07-05 07:57 | Outpatient (AMB) | payer OTHER, SELFPAY ==
--- OUTSIDE RECORDS SUMMARY | 2025-07-05 08:00 | XMS_ITS | Clinical Summary ---
Author Organization [place] [address] Trini benitez [facility] Building Address [address] [place], [place] [address], [place] [address] Phone Care Team Providers Care Roller Turner Name Role Phone Komal Mahajan MD Primary Care Provider Allergies Active Allergy Reactions Criticality Noted Date Comments [place] 02/21/2009 Other Reaction(s): Hives/Urticaria Medications buPROPion (WELLBUTRIN) [...] (CMS/HCC V24) 2011 Overview (10/30/2024): Admitted at [facility] 08/11. D/c on Zoloft 50 mg daily for a week, then increase to 75 mg, individual and family counseling 10/12: counselor at [facility], started on prozac 07/15: therapist through [facility] waitlist for meds 07/16: therapist: [facility] Nelson boyer 07/18: [employer] therapist once a week. Immunizations Name Administration Dates Next Due DTaP (Infanrix) 6wks to less than 7yo ,07/31/1999,05/27/1998,03/10,01/06/1998 [id number] (Pentacel) 2mo to less than 5yo 07/31/1999,05/27/1998,03/10/1998,01/06 [...] Medical History Date Comments Major depression, recurrent ([facility]/HCC V24) 08/14/2012 DX:Major depression, recurre nt ([facility] [...] Screening: Pap Smear 12/24/2022 12/24/2019, 12/24/2019, 12/24/2019 Depression Screening 10/31/2024 06/02/2024 COVID-19 Vaccine ( season) 2025 07/28/2024, 08/09/2022, 09/22/2021, Additional history exists Influenza Vaccine (#1) 2025 , 07/01/2023, 08/09/2022, [...] * Depression Screening (06/02/2024) Depression Screening abstracted [facility] Provider HEALTH MAINTENANCE Final Result * (ABNORMAL) [...] RESULTING AGENCY - 12/26/2019 11:16 AM EST [id number] THINPREP PAP, IMAGED: NEGATIVE FOR SQUAMOUS INTRAEPITHELIAL [...] Health Maintenance Insurance [employer] Care Teams Roller Turner Relationship Specialty Start Date End Date Komal Mahajan MD [address] [place] [address] PCP - General Internal Medicine 05/10/25
--- NOTE | 2025-07-05 08:11 | MHC.OFFWIV ---
Intake Vital Signs 07/05/25 08:13 Height 5 ft 5 in Weight 310 lb BMI 51.6 BP 118/82 Blood Pressure Location Rt brachial Position Sitting Respiration 16 Pulse 89 Pulse Source Pulse Oximeter Temp 98.0 F Temp Source Oral Pulse Oximetry (%) 99 Oxygen Delivery Method Room Air Intake Visit Reasons: EP chest pain, some sob Intake Note: Pt is here today c/o Rt chest pain and SOB started this morning Patient Tobacco Use Status: Never used Tobacco Allergies strawberry (STRAWBERRY) Allergy (Intermediate, Verified 06/13/25 16:29) RASH HPI HPI Comments History of Present Illness Details History of Present Illness - The patient is a 29-year-old female presenting with intense chest pain. - The chest pain began suddenly at 5:30 AM, waking the patient from sleep. - The pain is located under the right ribs and is exacerbated by deep breathing. She is short of breath. - The patient attempted to alleviate the pain with 500 mg of Tylenol, which was ineffective. - There is no history of similar episodes, leg swelling, fever, cough, or respiratory symptoms. - The patient is on control pills and is aware of the associated risk of blood clots. - The patient denies any family history of clotting disorders or blood clots. - Denies shoulder pain, arm pain, neck pain, does not radiate to abdomen or back. Denies nausea Physical Exam General: Cooperative, healthy appearing, comfortable, no acute distress and well developed Orientation: Patient oriented x3 Limitations: No limitations Head: Normal to inspection Ears: Hearing grossly normal bilaterally Nose: Normal External nose present Face and sinus: Normal facial exam Eyes: Appearance normal, both eyes and all related structures Neck: Normal visual inspection and Yes full ROM Respiratory: Normal respiratory effort and able to speak in complete sentences. clear to auscultation Cardiac: regular rate and rhythm, normal s1 and s2 Skin: No rashes or lesions noted Neuro: Patient oriented x3 Extremities: Normal to inspection [facility] Medical History (Updated 07/05/25 @ 08:26 by Alexa Rodriguez PA-C) Morbid obesity with BMI of 50.0-59.9, adult Mild intermittent asthma Asthma Surgical History History of wisdom tooth extraction Family History Mother Cervical cancer Substance use disorder Anxiety and depression Father Substance use disorder Sister Bipolar disorder Asthma Maternal Grandmother Anxiety and depression Maternal Grandfather Essential hypertension Social History Housing: House Alcohol intake: never Patient Tobacco Use Status: Never used Tobacco e-Cigarette/Vaping Use: Never Used service: No Current occupational status: employed Cognitive needs: No Hearing needs: No Vision needs: Yes Female Reproductive History Menstrual Age of Menarche: 13 Review of Systems Const All systems reviewed & are unremarkable except as noted in HPI and below Physical Exam Vital Signs: Last Vital Signs Temp 98.0 F 07/05/25 08:13 Pulse 89 07/05/25 08:13 Resp 16 07/05/25 08:13 BP 118/82 07/05/25 08:13 Pulse Ox 99 07/05/25 08:13 Oxygen Delivery Method Room Air 07/05/25 08:13 BMI result Body Mass Index 51.6 Office Procedures EKG [id number], Complete Assessment & Plan Assessment & Plan (1) Shortness of breath: Code(s): R06.02 - Shortness of breath Plan: Patient was informed and verbally consented to the use of an ambient scribe for clinic note documentation during this visit. Chest Pain - An EKG showed normal sinus rhythm with a heart rate of 91 bpm. - Musculoskeletal pain, GERD, pulmonary embolism vs other - Due to the use of control pills and BMI, the patient is at increased risk for blood clots. - Emergency department visit recommended for further evaluation and CT scan. - Called [facility] ED with expect, spoke with Tor 8:25AM (2) Chest pain at rest: Code(s): R07.9 - Chest pain, unspecified Plan: as above Orders: Orders AMB EKG-In Office Today R07.9 - Chest pain, unspecified Coding Level of Care Code New Pt Level 5 (14744) Diagnoses Shortness of breath R06.02 Chest pain at rest R07.9 CPT Codes EKG - CPT: 28169-[id number], Complete ([id number])
[2025-07-05 08:13] VITALS: BP 118/82; PULSE 89; RESP 16; TEMP 36.7; O2SAT 99; BMI 51.6
== END 2025-07-05 08:41 | disposition home or self-care (01) ==
PROVIDERS: PCP Internal Medicine; Visit Provider Physician Assistant
DX: R06.02 Shortness of breath (principal); R07.9 Chest pain, unspecified

== ENCOUNTER → 2025-07-05 07:57 | Outpatient (BNVA) | payer OTHER, SELFPAY | PROVIDERS: PCP Internal Medicine; Visit Provider Physician Assistant | DX: R07.9 Chest pain, unspecified (principal); R06.02 Shortness of breath | CPT/HCPCS: 93005 ==

== ENCOUNTER 2025-07-05 08:45 | Inpatient (IN) | payer OTHER, SELFPAY ==
[2025-07-05] VITALS (9 sets, daily range): BP systolic 115–150; BP diastolic 55–102; PULSE 74–98; RESP 12–23; TEMP 36.1–37; O2SAT 97–100; BMI 55.0
--- NOTE | ~2025-07-05 | US_ITS ---
EXAMINATION: US ABDOMEN LIMITED CLINICAL INFORMATION: Gallstones, positive Miranda's sign. COMPARISON: Correlation made with CTPA chest performed earlier same day. TECHNIQUE: Real-time imaging of the gallbladder and bile ducts was performed. FINDINGS: GALLBLADDER: Gallbladder is physiologically distended. There are calcified mobile gallstones intraluminally. There is no significant wall thickening or pericholecystic fluid collection. The patient reported a positive sonographic Miranda's sign at the time of the examination. COMMON BILE DUCT: Normal in caliber measuring 0.4 cm in diameter. FREE FLUID: None. US/US abdomen limited IMPRESSION: 1. Cholelithiasis. No definite wall gallbladder thickening or pericholecystic fluid collection. The patient reported a positive sonographic Miranda's sign at the time of the exam. Cannot exclude early cholecystitis. Electronically signed by: Dontae Clemens MD 07/05/2025 03:34 PM EDT
--- NOTE | ~2025-07-05 | XR_ITS ---
EXAMINATION: XR CHEST CLINICAL INFORMATION: chest pain COMPARISON: None available. TECHNIQUE: 2 views of the chest were obtained. FINDINGS: No hyperinflation. No consolidation, pleural effusion or pneumothorax. Arty mediastinal silhouette size is normal. Osseous structures are grossly intact. No free air beneath the diaphragm. Patient's large body habitus/obesity. XR/XR chest 2V IMPRESSION: Normal chest x-ray. Electronically signed by: Ajith Reynoso MD 07/05/2025 09:32 AM EDT
--- NOTE | ~2025-07-05 | CT_ITS ---
EXAMINATION: CT ANGIOGRAM CHEST CLINICAL INFORMATION: Chest pain, rule out PE. COMPARISON: No prior CT. Chest x-ray dated earlier same day. TECHNIQUE: Multiple axial images were obtained through the chest after the administration of 50 mL of Omnipaque 350 intravenous contrast. Extensive vascular post-processing including two-dimensional and three-dimensional reformatted images were created and reviewed on an independent workstation. This CT examination was performed using dose optimization techniques as appropriate, variously including the following: *Automated exposure control *Adjustment of mA and/or kV according to patient size (this includes techniques or standardized protocols for targeted exams where dose is matched to indication/reason for exam; i.e. extremities or head) *Use of iterative reconstruction technique FINDINGS: VASCULAR: Study quality is diagnostic. There is no pulmonary embolus. The main pulmonary artery is normal in size. The aorta is normal in caliber and course. There is no evidence of acute aortic syndrome or aneurysm. There is a 2 vessel branching pattern. The great vessels are widely patent. The heart size is normal. There is no pericardial effusion. LUNGS: Lungs are clear. There is no consolidation or abnormal opacity. There is no effusion or pneumothorax. There is no interstitial abnormality. Small airways appear normal. Central airways are patent. MEDIASTINUM: No mediastinal lymphadenopathy or mass. Normal partially imaged thyroid. Normal esophagus and GE junction. CHEST WALL/AXILLA: No mass or abnormal lymph nodes. Obesity. Normal appearance. IMAGED UPPER ABDOMEN: There is diffuse fatty infiltration of the liver. There is no focal liver abnormality. There is cholelithiasis present. The gallbladder otherwise appears normal. Remainder of the imaged upper abdominal contents appear normal. OSSEOUS STRUCTURES: Normal. No suspicious lytic or blastic bone lesion. CT/CT angio chest PE protocol IMPRESSION: 1. There is no evidence of pulmonary embolus. There is no acute aortic syndrome or aneurysm. 2. The lungs are clear bilaterally. 3. There is fatty infiltration of the liver. 4. There is cholelithiasis. Electronically signed by: Dontae Clemens MD 07/05/2025 02:14 PM EDT
--- NOTE | 2025-07-05 08:51 | ECG_ITS ---
Test Reason : CHEST PAIN Blood Pressure : */* mmHG Vent. Rate : 79 BPM Atrial Rate : 79 BPM P-R Int : 150 ms QRS Dur : 76 ms QT Int : 380 ms P-R-T Axes : 32 16 29 degrees QTcB Int : 435 ms Normal sinus rhythm with sinus arrhythmia Normal ECG When compared with ECG of 04-Nov-2016 14:36, No significant change was found Referred By: Generic ED Physician Electronically Signed By: Franco Salcedo
[2025-07-05 09:14] LABS: Hematocrit 38.9 % (37.0-47.0); Hemoglobin 13.3 g/dl (12.0-16.0); MANUAL DIFF FLAG NO; Mean Corpuscular HGB Conc 34.2 g/dl (31.0-35.0); Mean Corpuscular Hemoglobin 27.9 pg (27.0-33.0); Mean Corpuscular Volume 81.6 fL (80.0-98.0); Platelet Count 367 X10*3/uL (160-400); Red Blood Count 4.77 X10*6/uL (4.20-5.50); White Blood Count 14.2 X10*3/uL (4.8-10.8)
[2025-07-05 09:15] LABS: Imm Gran Abs Auto 0.05 X10*3/uL (0.00-0.03); Imm Gran Pct Auto 0.4 % (0.0-0.4); Lymphocytes Absolute Auto 2.9 X10*3/uL (1.2-4.9); NRBC Abs Auto 0.000 X10*3/uL (0.0-0.012); NRBC Pct Auto 0.0 /100WBC (0.0-0.2)
--- NOTE | 2025-07-05 09:20 | PC.NURSE ---
PT roomed and changed and placed on full monitor- VSS states CP under right breast radiating to back, some nausea starting she states. NSR on tele. No other complaints.
[2025-07-05 09:37] LABS: Alanine Aminotransferase 58 U/L (0-31); Albumin Level 4.3 g/dL (3.5-5.0); Alkaline Phosphatase 128 U/L (39-117); Anion Gap 13 (12-20); Aspartate Amino Transferase 31 U/L (5-31); Blood Urea Nitrogen 10 mg/dL (9-16); Calcium 9.2 mg/dL (8.4-10.2); Carbon Dioxide 22 mmol/L (22-29); Chloride 106 mmol/L (96-108); Creatinine Clr Calc Pharmacy 196.2; Estimated Glomerular Filt Rate > 60; Potassium 4.0 mmol/L (3.3-5.1); Sodium 137 mmol/L (135-145); Total Protein 7.1 g/dL (6.5-8.0)
[2025-07-05 09:49] LABS: Troponin-I High Sensitivity < 2.7 ng/L (<3.5-17.0)
[2025-07-05 10:04] LABS: INTERNATIONAL NORM RATIO 1.0 (0.9-1.1); Prothrombin Time 11.5 SEC (10.9-12.4)
--- NOTE | 2025-07-05 10:22 | ED_ITS ---
HPI - Chest Pain General Chief Complaint: Chest Pain Stated Complaint: chest pain Time Seen by Provider: 07/05/25 09:51 Source: patient, RN notes reviewed and old records reviewed Mode of arrival: ambulatory Limitations: no limitations History of Present Illness ED Provider: MARILUZ Landry HPI narrative: 29-year-old female with medical history of morbid obesity, asthma, presents to the ED due to chest pain. Patient states she woke up at 5:00 a.m. due to constant chest pain that was located in the right side under her breast that is exacerbated with with an episode of diaphoresis and nausea. Patient states the pain is worse with deep inspiration, and movement. Patient went to urgent care due to these symptoms and was sent to the ED due to the provider being concerned for pulmonary embolism. Related Data Previous Rx's ?Medication ?Instructions ?Recorded acetaminophen 500 mg tablet 500 mg PO Q6H PRN fever or pain 08/20/22 (Tylenol Extra Strength) #14 tabs desogestrel-e.estradiol 0.15 1 tab PO DAILY #84 tabs 0 02/15/25 mg-0.02 mg(21)/e.estrad 0.01 mg(5) tablet albuterol sulfate 90 mcg/actuation 2 puff inhalation Q 6H PRN 05/02/25 aerosol inhaler shortness of breath or wheez ing #8.5 grams phentermine 30 mg capsule 30 mg PO DAILY #30 caps 05/31 02/22 oxycodone 5 mg tablet 5 mg PO Q6H PRN pain (scale score 07/07/25 7-10) #15 tabs Allergies Allergy/AdvReac Type Severity Reaction Status Date / Time strawberry (STRAWBERRY) Allergy Intermediate RASH Verified 07/05/25 09:01 Review of Systems 2 Review of Systems: CONST: Negative for fever, body aches and chills. HENT: Negative for neck pain/stiffness, headache, congestion, sore throat, swelling. EYES: Negative for discharge/pain or vision changes. RESP: Negative for cough/hemoptysis and shortness of breath. CV: Negative chest pain, difficulty breathing, palpitations. POS R sided chest pain below breast ABD: Negative pain, nausea, vomiting. : Negative increase frequency, dysuria, blood in urine or stool. MUSC: Negative for muscle aches, edema. SKIN: Negative rash, lesions/sores. NEURO: Negative headache, dizziness, weakness. Yes all other systems are reviewed and are negative [facility] Past Medical History Medical History Morbid obesity with BMI of 50.0-59.9, adult Mild intermittent asthma Asthma Surgical History History of wisdom tooth extraction Family History Family History Mother Cervical cancer Substance use disorder Anxiety and depression Father Substance use disorder Sister Bipolar disorder Asthma Maternal Grandmother Anxiety and depression Maternal Grandfather Essential hypertension Social History Social History Household Members: Family Housing: House Do you presently have visiting nurse or other home services: No Alcohol intake: never Patient Tobacco Use Status: Never used Tobacco e-Cigarette/Vaping Use: Never Used Substance Use Type: Marijuana service: No Current occupational status: employed Cognitive needs: No Hearing needs: No Vision needs: Yes Physical Exam 2 Vital Signs: Vital Signs: Last Vital Signs Temp 97.6 F 07/07/25 11:13 Pulse 92 07/07/25 11:13 Resp 18 07/07/25 11:13 BP 112/64 07/07/25 11:13 Pulse Ox 94 07/07/25 11:13 O2 Del Method Room Air 07/07/25 11:13 O2 Flow Rate 3 07/06/25 10:28 BMI result Body Mass Index 55.0 GENERAL APPEARANCE: ?AxOx4, generally well-appearing, no acute distress. HEENT: ?NC, AT. MMM. EOMI, clear conjunctiva, oropharynx clear. NECK: ?Supple without lymphadenopathy.? No stiffness or restricted ROM. HEART:? Normal rate and regular rhythm, normal S1/S1, no m/r/g LUNGS:? CTAB, moving air well. No crackles or wheezes are heard. ABDOMEN: ?Soft, nondistended, no rigidity, diffusely tender of right upper quadrant, no rebound tenderness BACK: No CVAT, no obvious deformity. EXTREMITIES: ?Without cyanosis, clubbing or edema. NEUROLOGICAL: ?Grossly nonfocal. Alert and oriented, moving all 4 extremities. Skin: ?Warm and dry without any rash. Medications Administered Discontinued Medications Generic Name Dose Route Start Last Admin Trade Name Freq PRN Reason Stop Dose Admin Acetaminophen 1,000 mg in 100 mls @ 400 mls/hr 07/05/25 17:09 07/06/25 18:52 Ofirmev IV Infused Q6H PRN Infusion Pain, Mild (Pain Scale 1-3) Dextrose/Lactated Ringer's 1,000 mls @ 125 mls/hr 07/05/25 17:15 07/07/25 06:34 D5lr IVCONT 125 mls/hr .Q8H LAKSHMI Administration Piperacillin Sod/Tazobactam 50 mls @ 100 mls/hr 07/05/25 18:00 07/07/25 06:29 Sod 3.375 gm/ Sodium Chloride IV Infused Q6H LAKSHMI Infusion Iohexol 100 ml 07/05/25 14:03 07/05/25 14:04 Iohexol 350 Mg/Ml 100 Ml Infus..Btl IV 07/05/25 14:04 65 ml ONCE ONE Administration Ondansetron HCl 4 mg 07/05/25 17:09 07/06/25 10:13 Ondansetron Hcl 4 Mg/2 Ml Vial IVPUSH 4 mg QID PRN Administration Nausea Ondansetron HCl 4 mg 07/06/25 10:24 07/06/25 11:26 Ondansetron Hcl 4 Mg/2 Ml Vial IVPUSH 07/06/25 10:25 Not Given ONCE ONE Oxycodone HCl 5 mg 07/05/25 17:09 07/06/25 23:37 Oxycodone Hcl Immed Release 5 Mg Tablet PO 5 mg Q6H PRN Administration Pain, Moderate(Pain Scale 4-6) Sodium Chloride 3 ml 07/06/25 00:00 07/07/25 07:35 0.9 % Sodium Chloride Flush 3 Ml Syringe IVFLUSH Not Given QSHIFT [facility] Medical Decision Making Medical Decision Making MDM Narrative: 29-year-old female with medical history of morbid obesity, asthma, presents to the ED due to chest pain. Patient states she woke up at 5:00 a.m. due to constant chest pain that was located in the right side under her breast that is exacerbated with with an episode of diaphoresis and nausea. Patient states the pain is worse with deep inspiration, and movement. Patient went to urgent care due to these symptoms and was sent to the ED due to the provider being concerned for pulmonary embolism. Patient is on oral desogestrel ethyinyl estradiol for contraception. VS on initial observation-BP of 150/83, pulse rate of 84, respiratory rate of 18, afebrile with oral temperature of 98.4?, O2 saturation 88% on room air. On physical exam I am able to reproduce chest pain by palpating directly under the R breast. Abdomen is soft, nondistended, nonrigid however is diffusely tender of the right upper quadrant. Plan: Labs, EKG, CT angio chest PE protocol Course 16:09- EKG reveals normal sinus rhythm with a sinus arrhythmia however when compared with an EKG in 2017 no changes found, troponins x2 undetectable at <2.7- less likely ACS Labs reveal leukocytosis of 14.2, with a mild left shift of 73.8, no bands present, H&H stable, ALT of 58, alkaline phosphatase elevated at 128. CT angio chest was negative for PE however did reveal multiple stones within the gallbladder. I performed a bedside ultrasound with my attending Dr. Gonzalez and stones were visualized. Dedicated ultrasound of the abdomen revealed multiple calcified mobile stones, without gallbladder wall thickening or pericholecystic fluid, had a positive sonographic Miranda's sign, can not exclude early cholecystitis. I spoke with surgeon Dr. Olivia who interviewed the patient. Patient is adamant about eating. Dr. Peter is ok with outpatient follow up if patient is able to tolerate PO while in the department. 17:08- patient unable to tolerate PO of peanut butter and crackers. Dr. Olivia will admit for surgery. Differential Diagnosis Differential Diagnoses: The differential diagnosis associated with the presentation includes ACS PE Acute abdomen Electrolyte abnormality Admission/Observation Consideration of admission/observation: Escalation of care including admission/observation considered Consult Healthcare Provider Management of the patient was discussed with: Transportation Lead (Surgeon Dr. Olivia) Lab Data MDM Lab Attestation statement: I reviewed the patient's lab results. 07/05/25 09:09 07/05/25 09:09 Labs: Lab Results 07/05/25 07/05/25 07/05/25 Range/Units 09:09 09:54 13:22 WBC 14.2 H (4.8-10.8) X10*3/uL RBC 4.77 (4.20-5.50) X10*6/uL Hgb 13.3 (12.0-16.0) g/dl Hct 38.9 (37.0-47.0) % MCV 81.6 (80.0-98.0) fL MCH 27.9 (27.0-33.0) pg MCHC 34.2 (31.0-35.0) g/dl RDW 13.5 (11.0-16.0) % Plt Count 367 (160-400) X10*3/uL MPV 9.8 (9.4-12.3) fL Immature Gran % (Auto) 0.4 (0.0-0.4) % Neut % (Auto) 73.8 H (45-73) % Lymph % (Auto) 20.4 (20-40) % [place] % (Auto) 4.4 (2-11) % Eos % (Auto) 0.4 (0-4) % Baso % (Auto) 0.6 (0-2) % Lymph # (Auto) 2.9 (1.2-4.9) X10*3/uL [place] # (Auto) 0.6 (0.1-1.2) X10*3/uL Eos # (Auto) 0.1 (0.0-0.4) X10*3/uL Baso # (Auto) 0.1 (0.0-0.2) X10*3/uL Abs Immat Gran (auto) 0.05 H (0.00-0.03) X10*3/uL Absolute Neuts (auto) 10.5 H (2.0-8.3) x10*3/uL Absolute Nucleated RBC 0.000 (0.0-0.012) X10*3/uL Nucleated RBC % (auto) 0.0 (0.0-0.2) /100WBC PT 11.5 (10.9-12.4) SEC INR 1.0 (0.9-1.1) Sodium 137 (135-145) mmol/L Potassium 4.0 (3.3-5.1) mmol/L Chloride 106 (96-108) mmol/L Carbon Dioxide 22 (22-29) mmol/L Anion Gap 13 (12-20) BUN 10 (9-16) mg/dL Creatinine 0.64 (0.5-1.4) mg/dL Estim Creat Clear Calc 196.2 Estimated GFR > 60 Random Glucose 132 H (60-115) mg/dL Calcium 9.2 (8.4-10.2) mg/dL Total Bilirubin 0.5 (0.0-1.0) mg/dL AST 31 (5-31) U/L ALT 58 H (0-31) U/L Alkaline Phosphatase 128 H (39-117) U/L Troponin I High Sens < 2.7 < 2.7 (<3.5-17.0) ng/L Total Protein 7.1 (6.5-8.0) g/dL Albumin 4.3 (3.5-5.0) g/dL Beta HCG, Quant < 2 mIU/mL Independent Interpretation I performed an independent interpretation of an: EKG Interpretation: I personally interpreted the EKG which reveals normal sinus rhythm with sinus arrhythmia, no ST-elevation/depression, T-wave abnormality, dysrhythmia, however no change is seen when comparing this EKG to a prior done in 2017. Vent. Rate : 79 BPM Atrial Rate : 79 BPM P-R Int : 150 ms QRS Dur : 76 ms QT Int : 380 ms P-R-T Axes : 32 16 29 degrees QTcB Int : 435 ms Normal sinus rhythm with sinus arrhythmia Normal ECG When compared with ECG of 04-Nov-2016 14:36, No significant change was found I personally interpreted the CTA chest which was negative for pulmonary embolism, I agree with the radiologist's interpretation I personally interpreted the abdominal ultrasound which revealed cholelithiasis without gallbladder wall thickening or pericholecystic fluid, I agree with the radiologist's interpretation Radiology Impression Discussion of test interpretation with radiology: I have reviewed the radiologist's reading. Radiologist Impression: CTA chest FINDINGS: VASCULAR: Study quality is diagnostic. There is no pulmonary embolus. The main pulmonary artery is normal in size. The aorta is normal in caliber and course. There is no evidence of acute aortic syndrome or aneurysm. There is a 2 vessel branching pattern. The great vessels are widely patent. The heart size is normal. There is no pericardial effusion. LUNGS: Lungs are clear. There is no consolidation or abnormal opacity. There is no effusion or pneumothorax. There is no interstitial abnormality. Small airways appear normal. Central airways are patent. MEDIASTINUM: No mediastinal lymphadenopathy or mass. Normal partially imaged thyroid. Normal esophagus and GE junction. CHEST WALL/AXILLA: No mass or abnormal lymph nodes. Obesity. Normal appearance. IMAGED UPPER ABDOMEN: There is diffuse fatty infiltration of the liver. There is no focal liver abnormality. There is cholelithiasis present. The gallbladder otherwise appears normal. Remainder of the imaged upper abdominal contents appear normal. OSSEOUS STRUCTURES: Normal. No suspicious lytic or blastic bone lesion. CT/CT angio chest PE protocol IMPRESSION: 1. There is no evidence of pulmonary embolus. There is no acute aortic syndrome or aneurysm. 2. The lungs are clear bilaterally. 3. There is fatty infiltration of the liver. 4. There is cholelithiasis. Electronically signed by: Dontae Clemens MD 07/05/2025 02:14 PM EDT Dictated By: Dontae Clemens MD Signed By: <Electronically signed by Dontae Clemens MD in [place]> 07/05/25 1414 U/S abdomen FINDINGS: GALLBLADDER: Gallbladder is physiologically distended. There are calcified mobile gallstones intraluminally. There is no significant wall thickening or pericholecystic fluid collection. The patient reported a positive sonographic Miranda's sign at the time of the examination. COMMON BILE DUCT: Normal in caliber measuring 0.4 cm in diameter. FREE FLUID: None. US/US abdomen limited IMPRESSION: 1. Cholelithiasis. No definite wall gallbladder thickening or pericholecystic fluid collection. The patient reported a positive sonographic Miranda's sign at the time of the exam. Cannot exclude early cholecystitis. Electronically signed by: Dontae Clemens MD 07/05/2025 03:34 PM EDT Dictated By: Dontae Clemens MD Signed By: <Electronically signed by Dontae Clemens MD in [place]> 07/05/25 1534 External Record Review External record reviewed: Inpatient record, Office record and Outpatient record Chronic Conditions Patient?s care impacted by: Other (Morbid obesity, asthma) Critical Care Time Critical Care Time Total Critical Care Time: 46 Attestation: I personally provided 46 minutes of critical care time due to chest pain and acute cholecystitis including high complexity decision-making, monitoring, interpretation of studies, coordination of care with medical staff to prevent life-threatening deterioration Discharge Plan Discharge Clinical Impression: Cholelithiasis Patient Disposition: Admitted As Inpatient Interventions: Admission Worksheet (ED) Last Done: 07/05/25 17:51 Discharge Date/Time: 07/05/25 18:25
[2025-07-05 13:50] LABS: Troponin-I High Sensitivity < 2.7 ng/L (<3.5-17.0)
[2025-07-05] MEDS: iohexoL 350 MG/ML 100 ML INFUS..BTL IV (14:04)
--- NOTE | 2025-07-05 17:14 | PM.HPGS ---
History of Present Illness History of Present Illness Date of Service: 07/05/25 Chief complaint: Acute Cholecystitis,cholelithiasis Narrative: Carly Alatorre is a 29 year old female presenting with complaints of right upper quadrant abdominal pain which woke her up from sleep this morning at 05:00. She reports eating dinner last night without any issues and was fine throughout the night until this morning when she awoke suddenly with a sharp pain in the right upper quadrant. She initially thought she was having chest pain and presented to the emergency department for further evaluation. She denies a previous history of similar pain and denies a history of heartburn or reflux. She denies fever or chills but has been nauseous. She feels that she is nauseous because she is hungry and has not eaten since yesterday. She reports a past history of asthma and denies any previous abdominal surgeries. Workup in the emergency department with ultrasound revealed cholelithiasis without any definite wall thickening or pericholecystic fluid. Common bile duct was normal as well. There is tenderness to palpation of the gallbladder. She is admitted to the surgical service for further management of this acute cholecystitis. Review of Systems Review of Systems: Yes all other systems are reviewed and are negative PMFSH Past Medical History Medical History (Updated 07/05/25 @ 17:19 by Blake Olivia MD) Morbid obesity with BMI of 50.0-59.9, adult Mild intermittent asthma Asthma Family History Family History Mother Cervical cancer Substance use disorder Anxiety and depression Father Substance use disorder Sister Bipolar disorder Asthma Maternal Grandmother Anxiety and depression Maternal Grandfather Essential hypertension Surgical History Surgical History History of wisdom tooth extraction Social History Social History Housing: House Alcohol intake: never Patient Tobacco Use Status: Never used Tobacco Smoked in Last 30 Days: No e-Cigarette/Vaping Use: Never Used Use of substances other than those prescribed or required for medical reasons: Yes Substance Use Type: Marijuana Substance Use Frequency Other:: 2.5-5mg/week Advance Directives: No Advance Directives Information Provided: Yes Patient : No service: No Current occupational status: employed Cognitive needs: No Hearing needs: No Vision needs: Yes Meds Allergies Allergy/AdvReac Type Severity Reaction Status Date / Time strawberry (STRAWBERRY) Allergy Intermediate RASH Verified 07/05/25 09:01 Active Medications: Current Medications Hydromorphone HCl (Hydromorphone Hcl 0.5 Mg/0.5 Ml Syringe) 0.5 mg IVPUSH Q3H PRN; Protocol PRN Reason: Pain, Severe (Pain Scale 7-10) Acetaminophen (Ofirmev) 1,000 mg in 100 mls @ 400 mls/hr IV Q6H PRN PRN Reason: Pain, Mild (Pain Scale 1-3) Dextrose/Lactated Ringer's (D5lr) 1,000 mls @ 125 mls/hr IVCONT .Q8H LAKSHMI Piperacillin Sod/Tazobactam (Sod 3.375 gm/ Sodium Chloride) 50 mls @ 100 mls/hr IV Q6H LAKSHMI Ondansetron HCl (Ondansetron Hcl 4 Mg/2 Ml Vial) 4 mg IVPUSH QID PRN PRN Reason: Nausea Oxycodone HCl (Oxycodone Hcl Immed Release 5 Mg Tablet) 5 mg PO Q6H PRN PRN Reason: Pain, Moderate(Pain Scale 4-6) Sodium Chloride (0.9 % Sodium Chloride Flush 3 Ml Syringe) 3 ml IVFLUSH QSHIFT LAKSHMI Zolpidem Tartrate (Zolpidem Tartrate 5 Mg Tablet) 5 mg PO BEDTIME PRN PRN Reason: Insomnia Physical Exam Vital Signs: Vital Signs: Last Vital Signs Temp 98.4 F 07/05/25 17:02 Pulse 92 07/05/25 17:02 Resp 16 07/05/25 17:02 BP 116/73 07/05/25 17:02 Pulse Ox 99 07/05/25 17:02 O2 Del Method Room Air 07/05/25 17:02 BMI result Body Mass Index 55.0 Const: General: no acute distress Nutritional Appearance: obese Orientation/consciousness: patient oriented x3 Limitations: no limitations Resp: Effort & Inspection: normal respiratory effort, no audible wheezes, no cough and no respiratory distress GI: Inspection: Yes normal to inspection Palpation (GI): Soft to palpation, Tenderness to palpation present (GI) in the RUQ and Miranda's sign positive; psoas sign negative and with no rebound tenderness, no guarding, not rigid and No hepatosplenomegaly present Skin: Other: Warm, dry, no rash Neuro: General: patient oriented x3 Extrem: General: Yes no clubbing, cyanosis or edema Results Results Labs: Short CBC 07/05/25 Range/Units 09:09 WBC 14.2 H (4.8-10.8) X10*3/uL Hgb 13.3 (12.0-16.0) g/dl Hct 38.9 (37.0-47.0) % Plt Count 367 (160-400) X10*3/uL BMP 07/05/25 09:09 Sodium 137 Potassium 4.0 Chloride 106 Carbon Dioxide 22 BUN 10 Creatinine 0.64 Calcium 9.2 Liver Function 07/05/25 Range/Units 09:09 Total Bilirubin 0.5 (0.0-1.0) mg/dL AST 31 (5-31) U/L ALT 58 H (0-31) U/L Alkaline Phosphatase 128 H (39-117) U/L Albumin 4.3 (3.5-5.0) g/dL Assessment and Plan (1) Cholecystitis, acute with cholelithiasis: Qualifiers: Biliary obstruction: without biliary obstruction Qualified Code(s): K80.00 - Calculus of gallbladder with acute cholecystitis without obstruction Status: Acute Plan 29-year-old female patient presenting with complaints of abdominal pain in the epigastrium and right upper quadrant found to have evidence of gallstones within the gallbladder. The patient has a positive Miranda sign suggestive of acute cholecystitis. Laboratories revealed an elevated WBC and mildly elevated transaminases. Patient felt her abdominal pain was due to being hungry however she was given some crackers this afternoon and could not tolerate this therefore is being admitted to the surgical service for further management of the acute cholecystitis. I recommended a laparoscopic or possible open cholecystectomy. I reviewed the procedure, risks and alternatives and she consents to a laparoscopic or possible open cholecystectomy. She has been added onto the operative schedule for tomorrow morning. Quality Stroke Does the patient have a stroke diagnosis?: No VTE Prior VTE?: No VTE Risk Level:: Surgical - moderate VTE Device Contraindication: N/A - Device Ordered VTE Drug Contraindication: Treatment Not Indicated Procedures Date of Service Date of Service: 07/05/25
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
[2025-07-05] MEDS: Dextrose 5 % and Lactated Ring 1,000 ML 125 ML IVCONT ×2 (18:05→20:57)
--- NOTE | 2025-07-05 18:14 | PHA.MEDREC ---
Addendum entered by Leland Jimenez [facility] 07/05/25 19:28: Reviewed by [facility] Addendum entered by Suzanne Hammond 07/05/25 19:05: Patient Phentermine was increased to 30 mg per Visit notes from 06/13/25 Addendum entered by Leland Jimenez [facility] 07/05/25 18:47: Reviewed by [facility] Original Note: Pharmacy Consult ? Medication Reconciliation Pharmacy has completed the medication reconciliation. patient was able to confirm all her medications. Patient states she is taking Phentermine 15 mg, however last fill date was 05/02/25 for 30 days. patient states she last took her medications yesterday.
[2025-07-05] MEDS: oxyCODONE HCl Immed Release 5 MG TABLET PO (21:57)
[2025-07-06] VITALS (11 sets, daily range): BP systolic 113–151; BP diastolic 61–91; PULSE 72–104; RESP 16–20; TEMP 36.2–36.6; O2SAT 95–100
[2025-07-06] MEDS: 0.9 % Sodium Chloride Flush 3 ML SYRINGE IVFLUSH ×2 (00:06→23:49)
[2025-07-06] MEDS: Dextrose 5 % and Lactated Ring 1,000 ML 125 ML IVCONT ×3 (05:29→21:50)
--- NOTE | 2025-07-06 07:27 | PM.PNGS ---
Subjective Subjective Date of Service: 07/06/25 Interval history: Patient feels somewhat improved this morning but does have occasional right upper quadrant abdominal pain. She wishes to proceed with surgery today. She denies any current nausea or vomiting. Physical Exam Vital Signs: Vital Signs: Last Vital Signs Temp 98 F 07/06/25 07:02 Pulse 102 H 07/06/25 07:02 Resp 16 07/06/25 07:02 BP 129/76 07/06/25 07:02 Pulse Ox 97 07/06/25 07:02 O2 Del Method Room Air 07/06/25 07:02 BMI result Body Mass Index 55.0 Const: General: no acute distress Nutritional Appearance: well nourished Orientation/consciousness: patient oriented x3 Limitations: no limitations Resp: Effort & Inspection: normal respiratory effort, no audible wheezes, no cough and no respiratory distress GI: Inspection: Yes normal to inspection Palpation (GI): Soft to palpation, Tenderness to palpation present (GI) in the RUQ and Miranda's sign positive, no guarding, not rigid and No hepatosplenomegaly present Neuro: General: patient oriented x3 Extrem: General: Yes normal to inspection and No edema Objective Data Active Medications Hydromorphone HCl (Hydromorphone Hcl 0.5 Mg/0.5 Ml Syringe) 0.5 mg IVPUSH Q3H PRN; Protocol PRN Reason: Pain, Severe (Pain Scale 7-10) Acetaminophen (Ofirmev) 1,000 mg in 100 mls @ 400 mls/hr IV Q6H PRN PRN Reason: Pain, Mild (Pain Scale 1-3) Dextrose/Lactated Ringer's (D5lr) 1,000 mls @ 125 mls/hr IVCONT .Q8H [facility] Last Infusion: 07/06/25 06:03 Dose: 125 mls/hr Documented By: LORENZO Piperacillin Sod/Tazobactam (Sod 3.375 gm/ Sodium Chloride) 50 mls @ 100 mls/hr IV Q6H [facility] Last Infusion: 07/06/25 05:58 Dose: Infused Documented By: LORENZO Ondansetron HCl (Ondansetron Hcl 4 Mg/2 Ml Vial) 4 mg IVPUSH QID PRN PRN Reason: Nausea Last Admin: 07/05/25 17:41 Dose: 4 mg Documented By: LIANA Oxycodone HCl (Oxycodone Hcl Immed Release 5 Mg Tablet) 5 mg PO Q6H PRN PRN Reason: Pain, Moderate(Pain Scale 4-6) Last Admin: 07/05/25 21:57 Dose: 5 mg Documented By: LORENZO Sodium Chloride (0.9 % Sodium Chloride Flush 3 Ml Syringe) 3 ml IVFLUSH QSHIFT LAKSHMI Last Admin: 07/06/25 00:06 Dose: 3 ml Documented By: LORENZO Zolpidem Tartrate (Zolpidem Tartrate 5 Mg Tablet) 5 mg PO BEDTIME PRN PRN Reason: Insomnia Labs 07/05/25 09:09 07/05/25 09:09 Labs: Laboratory Results - last 24 hr 07/05/25 07/05/25 07/06/25 09:09 09:54 05:53 MCV 81.6 MCH 27.9 MCHC 34.2 RDW 13.5 Plt Count 367 MPV 9.8 Immature Gran % (Auto) 0.4 Neut % (Auto) 73.8 H Lymph % (Auto) 20.4 Bonner % (Auto) 4.4 Eos % (Auto) 0.4 Baso % (Auto) 0.6 Lymph # (Auto) 2.9 Bonner # (Auto) 0.6 Eos # (Auto) 0.1 Baso # (Auto) 0.1 Abs Immat Gran (auto) 0.05 H Absolute Neuts (auto) 10.5 H Absolute Nucleated RBC 0.000 Nucleated RBC % (auto) 0.0 Hold Purple Top SEE NOTE PT 11.5 INR 1.0 Anion Gap 13 Estim Creat Clear Calc 196.2 Estimated GFR > 60 Random Glucose 132 H Calcium 9.2 Total Bilirubin 0.5 AST 31 ALT 58 H Alkaline Phosphatase 128 H Total Protein 7.1 Albumin 4.3 Beta HCG, Quant < 2 Procedures Date of Service Date of Service: 07/06/25 Progress Note: A&P Assessment and plan (1) Cholecystitis, acute with cholelithiasis: Status: Acute Plan 29-year-old female patient presenting with complaints of right upper quadrant abdominal pain found to have acute cholecystitis by ultrasound with cholelithiasis. I again reviewed the procedure, risks and alternatives and she consents to a laparoscopic or possible open cholecystectomy. Time Spent With Patient Time: Total time managing care of this patient today ____ minutes. Quality Stroke Does the patient have a stroke diagnosis?: No VTE Prior VTE?: No VTE Risk Level:: Surgical - moderate VTE Device Contraindication: N/A - Device Ordered VTE Drug Contraindication: Treatment Not Indicated
[2025-07-06 07:41] LABS: Alanine Aminotransferase 54 U/L (0-31); Albumin Level 3.9 g/dL (3.5-5.0); Alkaline Phosphatase 128 U/L (39-117); Aspartate Amino Transferase 32 U/L (5-31); Total Protein 6.5 g/dL (6.5-8.0)
--- NOTE | 2025-07-06 10:00 | P.OP_ITS ---
Operative Note Operative Note Date of Service: 07/06/25 Narrative: Preoperative diagnosis: Acute cholecystitis, cholelithiasis Postoperative diagnosis: Same Procedure: Laparoscopic cholecystectomy Surgeon: Blake Olivia MD [employer]: none Anesthesia: General endotracheal Indications for procedure: 29 year old female with complaints of abdominal pain , RUQ of 24 hours duration found to have acute cholecystitis due to cholelithiasis. Operative findings: acutely inflammed gallbladder with multiple large gallstones Specimen: gallbladder Estimated blood loss: 5 mls Complications: none Procedure details: Patient was brought to the OR and placed in a supine positio n. After administering general anesthesia the patient's abdomen was prepped with ChloraPrep and draped in a sterile fashion. A surgical time-out was called the consent confirmed. Patient received preoperative antibiotics and Venodyne boots were in place. Local anesthesia consisting of 0.5% Sensorcaine without epinephrine was infiltrated in a periumbilical region. A 5 mm incision was made above the umbilicus in a transverse fashion. The Veress needle was then inserted while elevating abdominal cavity with towel clips. After positive drop test the abdomen was insufflated to a pressure of 15 mm of mercury. The Veress needle was then removed and a 5 mm trocar inserted. The camera was inserted in the abdomen explored. A 12 mm trocar was then placed in the epigastrium. Two 5 mm trocars placed in the right upper quadrant. The patient was placed in reverse Trendelenburg positioning and rotated to the left. The gallbladder was grasped with the fundus and retracted cephalad by the research assistant member. The infundibulum was then grasped and retracted away from the liver bed, also by the research assistant member. The Dolphin dissected was then used by the surgeon to dissect the peritoneum off the infundibulum to reveal the junction with the cystic duct. Cystic artery was noted slightly medial and posterior to the cystic duct. After obtaining a critical view the cystic duct was doubly clipped and divided. The cystic artery was then doubly clipped and divided. The gallbladder was then dissected off the liver bed using electrocautery with an L hook. Hemostasis was assured all times using the electrocautery. When the gallbladder is completely dissected off the liver bed was placed in an Endo-Catch bag and brought out through the epigastric incision. The gallbladder was sent to pathology for further examination. The abdomen was then re-examined. The liver bed was irrigated and suctioned dry. No bleeding or bile leak could be identified. CO2 was then evacuated and all trocars removed. Skin was closed in all incisions using a subcuticular 4 0 Polysorb suture by both the surgeon and research assistant member. Sterile dressings consisting of Steri-Strips, 2 x 2 gauze, and Tegaderm were then applied. The patient tolerated the procedure well. Sponge instrument and needle counts reported as correct. The patient was transferred to PACU in stable condition.
--- NOTE | 2025-07-06 13:08 | MHC.CM.PN ---
PT REPORTS SHE LIVES WITH HER GRANDPARENTS AND IS INDEPENDENT WITH CARE SHE HAS NO DME OR SERVICES COPY OF HCP REQUESTED PCP: EDUARD MELTON DCP: HOME VIA PRIVATE TRANSPORT
[2025-07-06] MEDS: oxyCODONE HCl Immed Release 5 MG TABLET PO ×2 (13:19→23:37)
[2025-07-07 03:17] VITALS: BP 114/60; PULSE 97; RESP 18; TEMP 36.7; O2SAT 94
[2025-07-07] MEDS: Dextrose 5 % and Lactated Ring 1,000 ML 125 ML IVCONT (06:34)
[2025-07-07 07:54] VITALS: BP 116/69; PULSE 98; RESP 16; TEMP 36.6; O2SAT 95
--- NOTE | 2025-07-07 09:04 | PM.PNGS ---
Subjective Subjective Date of Service: 07/07/25 Interval history: POD #1 following laparoscopic cholecystectomy for acute cholecystitis. She has some incisional pain but was able to tolerate a regular diet. Denies any nausea or vomiting. Physical Exam Vital Signs: Vital Signs: Last Vital Signs Temp 97.9 F 07/07/25 07:54 Pulse 98 07/07/25 07:54 Resp 16 07/07/25 07:54 BP 116/69 07/07/25 07:54 Pulse Ox 95 07/07/25 07:54 O2 Del Method Room Air 07/07/25 07:54 O2 Flow Rate 3 07/06/25 10:28 BMI result Body Mass Index 55.0 Const: General: no acute distress Nutritional Appearance: well nourished Orientation/consciousness: patient oriented x3 Limitations: no limitations Resp: Effort & Inspection: normal respiratory effort GI: Other: Trocar incision sites are clean and intact. No redness or discharge noted. Skin: Other: Warm, dry, no rash Neuro: General: patient oriented x3 Extrem: General: Yes no pedal edema Objective Data Active Medications Hydromorphone HCl (Hydromorphone Hcl 0.5 Mg/0.5 Ml Syringe) 0.5 mg IVPUSH Q3H PRN; Protocol PRN Reason: Pain, Severe (Pain Scale 7-10) Acetaminophen (Ofirmev) 1,000 mg in 100 mls @ 400 mls/hr IV Q6H PRN PRN Reason: Pain, Mild (Pain Scale 1-3) Last Infusion: 07/06/25 18:52 Dose: Infused Documented By: LORENZO Dextrose/Lactated Ringer's (D5lr) 1,000 mls @ 125 mls/hr IVCONT .Q8H [facility] Last Admin: 07/07/25 06:34 Dose: 125 mls/hr Documented By: LORENZO Piperacillin Sod/Tazobactam (Sod 3.375 gm/ Sodium Chloride) 50 mls @ 100 mls/hr IV Q6H [facility] Last Infusion: 07/07/25 06:29 Dose: Infused Documented By: LORENZO Ondansetron HCl (Ondansetron Hcl 4 Mg/2 Ml Vial) 4 mg IVPUSH QID PRN PRN Reason: Nausea Last Admin: 07/06/25 10:13 Dose: 4 mg Documented By: PATTIE Oxycodone HCl (Oxycodone Hcl Immed Release 5 Mg Tablet) 5 mg PO Q6H PRN PRN Reason: Pain, Moderate(Pain Scale 4-6) Last Admin: 07/06/25 23:37 Dose: 5 mg Documented By: LORENZO Sodium Chloride (0.9 % Sodium Chloride Flush 3 Ml Syringe) 3 ml IVFLUSH QSHIFT LAKSHMI Last Admin: 07/07/25 07:35 Dose: Not Given Documented By: EVA Non-Admin Reason: IV Running Zolpidem Tartrate (Zolpidem Tartrate 5 Mg Tablet) 5 mg PO BEDTIME PRN PRN Reason: Insomnia Labs 07/05/25 09:09 07/05/25 09:09 Procedures Date of Service Date of Service: 07/07/25 Progress Note: A&P Assessment and plan (1) Cholecystitis, acute with cholelithiasis: Status: Acute Plan 29-year-old status post laparoscopic cholecystectomy for acute cholecystitis, cholelithiasis. She tolerated the procedure well and is recovering appropriately. She is ready for discharge to home today. She should avoid fatty/fried foods. I recommended she returned to the office in approximately 1 week. Oxycodone 1 tablet p.o. q.6 hours PRN for pain. Time Spent With Patient Time: Total time managing care of this patient today ____ minutes. Quality Stroke Does the patient have a stroke diagnosis?: No VTE Prior VTE?: No VTE Risk Level:: Surgical - moderate VTE Device Contraindication: N/A - Device Ordered VTE Drug Contraindication: Treatment Not Indicated
--- NOTE | 2025-07-07 09:42 | MHC.CM.PN ---
PT CLEARED TO DC HOME TODAY WITH NO SERVICES VIA SELF ARRANGED TRANSPORT
[2025-07-07 11:13] VITALS: BP 112/64; PULSE 92; RESP 18; TEMP 36.4; O2SAT 94
--- NOTE | 2025-07-07 12:30 | P.DS_ITS ---
DS: Providers Provider Date of Service: 07/07/25 Date of admission: 07/05/25 17:11 Date of discharge: 07/07/25 Primary care physician: Komal Mahajan MD Attending physician on admission: Blake Olivia Attending physician on discharge: Blake Olivia DS: Diagnosis Discharge Diagnosis (1) Cholecystitis, acute with cholelithiasis: Status: Acute DS: Summary Hospital Course Hospital Course: HPI AT ADMISSION: Carly Alatorre is a 29 year old female presenting with complaints of right upper quadrant abdominal pain which woke her up from sleep this morning at 05:00. She reports eating dinner last night without any issues and was fine throughout the night until this morning when she awoke suddenly with a sharp pain in the right upper quadrant. She initially thought she was having chest pain and presented to the emergency department for further evaluation. She denies a previous history of similar pain and denies a history of heartburn or reflux. She denies fever or chills but has been nauseous. She feels that she is nauseous because she is hungry and has not eaten since yesterday. She reports a past history of asthma and denies any previous abdominal surgeries. Workup in the emergency department with ultrasound revealed cholelithiasis without any definite wall thickening or pericholecystic fluid. Common bile duct was normal as well. There is tenderness to palpation of the gallbladder. She is admitted to the surgical service for further management of this acute cholecystitis. HOSPITAL COURSE: The patient was admitted to the surgical service for further treatment of the acute cholecystitis. She elected to proceed with laparoscopic cholecystectomy, possible open. She was added onto the OR schedule for that day. On 07/06/25, a laparoscopic cholecystectomy was performed by Dr. Olivia without complication. The patient tolerated the procedure well. She had an uncomplicated recovery course. On POD #1, she felt well and was tolerating a solid diet without nausea or vomiting, had good pain control and was ambulating without difficulty. She was hemodynamically stable. Her abdomen was benign with appropriate post op tenderness and clean and intact dressings. She felt ready for discharge. She was discharged to home on 07/07/25 in stable condition. She is to follow up in the office in 1 week. Status at Discharge Functional status at discharge: independent ambulation Overall status at discharge: patient is progressing back to baseline Time Attestation Discharge Coordination Time (in mins): 25 Quality: Safe Use of Opioids Does Pt have an Active Cancer Diagnosis on the Problem List?: No Quality: Stroke Does the patient have a stroke diagnosis?: No Physical Exam Vital Signs: Vital Signs: Last Vital Signs Temp 97.6 F 07/07/25 11:13 Pulse 92 07/07/25 11:13 Resp 18 07/07/25 11:13 BP 112/64 07/07/25 11:13 Pulse Ox 94 07/07/25 11:13 O2 Del Method Room Air 07/07/25 11:13 O2 Flow Rate 3 07/06/25 10:28 BMI result Body Mass Index 55.0 Const: General: comfortable, no acute distress and alert Orientation/consciousness: patient oriented x3 Resp: Effort & Inspection: normal respiratory effort GI: Other: soft, mild incisional tenderness dressings dry and intact Inspection: No distended Skin: General skin exam: no rashes or lesions noted and no jaundice Neuro: General: patient oriented x3 DS: Data Data Completed and Pending Pending studies at discharge: Pending at discharge 07/06/25 09:35 Surgical [PTH] Routine Discharge Plan Discharge Anticipated Discharge Date/Time: 07/07/25 09:01 Patient Disposition: Home, Self-Care Discharge Diagnosis: Acute cholecystitis, cholelithiasis Referrals: Komal Mahajan MD [Primary Care Provider, Internal Medicine] - 1 Week Blake Olivia MD [Physician, General Surgery] - 1 Week Discharge Medications: New oxycodone 5 mg tablet 5 mg PO Q6H PRN (Reason: pain (scale score 7-10)) Qty: 15 0RF Rx Instructions: Partial Fill upon patient request. No Action acetaminophen [Tylenol Extra Strength] 500 mg tablet 500 mg PO Q6H PRN (Reason: fever or pain) Qty: 14 0RF albuterol sulfate 90 mcg/actuation HFA aerosol inhaler 2 puff inhalation Q6H PRN (Reason: shortness of breath or wheezing) Qty: 8.5 5RF desog-e.estradiol/e.estradiol 0.15-0.02 mgx21 /0.01 mg x 5 tablet 1 tab PO DAILY Qty: 84 4RF phentermine 30 mg capsule 30 mg PO DAILY Qty: 30 0RF Rx Instructions: must administer 2 hours after breakfast Discharge Orders: Discharge Order (Routine); Ordered 07/07/25 Ordered By: Blake Olivia Diet: Low fat, low cholesterol Activity on Discharge: No heavy lifting Stand Alone Forms: Patient Portal Discharge page Print Language: Congolese Activity Restrictions/Additional Instructions: No lifting > 10 pounds for 2 weeks Stay on low fat diet for 1 month No driving for one week Ice to the incision x 24 hours After 24 hours, use warm compress or heating pad on low as needed Take Tylenol Extra-strength 1-2 tabs every 6 hours as needed Oxycodone every 6-8 hours as needed for pain Colace 100 mg every day as needed for constipation Remove dressing in 3 days Follow up in office in one week (call office at [phone] for appointment). Care Plan Goals: Returned to normal diet and activity Health Concerns: Severe abdominal pain right upper quadrant Plan of Treatment: Laparoscopic cholecystectomy on 07/06/2025 Assessment: Acute cholecystitis due to cholelithiasis Patient Instructions: Laparoscopic Cholecystectomy (DC) Discharge Date/Time: 07/07/25 11:30
--- NOTE | 2025-07-07 20:36 | HO.POSTANES ---
Post Anesthesia Evaluation Post Anesthesia Evaluation Date of Service: 07/07/25 Vital Signs: Vital Signs Temp Pulse Resp BP Pulse Ox O2 Del Method 07/07/25 11:13 97.6 F 92 18 112/64 94 Room Air Anesthesia: General Endotracheal-GETA Mental Status: Awake Pain Control: Satisfactory Nausea/Vomiting: None Hydration: Adequate Anesthesia-Related Issues: No Anes. Related Issues
== END 2025-07-07 11:30 | disposition home or self-care (01) | DRG 263 ==
LOC: HO.ED 17:15 → HO.EDOVER 17:16 → HO.S3 18:00
PROVIDERS: Admitting Provider Surgery; Emergency Provider Emergency Medicine; PCP Internal Medicine; Visit Provider Surgery
PROC: 0FT44ZZ Resection of Gallbladder, Percutaneous Endoscopic Approach (ICD-10-PCS; CPT 47562; principal; 2025-07-06 08:00)
DX: K80.00 Calculus of gallbladder with acute cholecystitis without obstruction (principal); Z79.899 Other long term (current) drug therapy
CPT/HCPCS: 36415; 71046; 71275; 76705; 80053; 80076; 84484; 84702; 85025; 85610; 88304; 93005; 99285; J0131; J2003; J2405; J2543; J2704; J3010; Q9967

== ENCOUNTER → 2025-07-05 08:51 | Outpatient (BNV) | payer OTHER, SELFPAY | PROVIDERS: Admitting Provider Surgery; Emergency Provider Emergency Medicine; PCP Internal Medicine; Visit Provider Internal Medicine Cardiovascular Disease | DX: I49.9 Cardiac arrhythmia, unspecified (principal) | CPT/HCPCS: 93010 ==

== ENCOUNTER → 2025-07-05 09:03 | Outpatient (BNV) | payer OTHER, SELFPAY | PROVIDERS: Emergency Provider Emergency Medicine; PCP Internal Medicine; Visit Provider Radiology Diagnostic Radiology | DX: R07.89 Other chest pain (principal); K76.0 Fatty (change of) liver, not elsewhere classified; K80.20 Calculus of gallbladder without cholecystitis without obstruction | CPT/HCPCS: 71046; 71275; 76705 ==

== ENCOUNTER → 2025-07-05 17:11 | Outpatient (BNV) | payer OTHER, SELFPAY | PROVIDERS: Admitting Provider Surgery; Emergency Provider Emergency Medicine; PCP Internal Medicine; Visit Provider Surgery | DX: K80.00 Calculus of gallbladder with acute cholecystitis without obstruction (principal) | CPT/HCPCS: 47562; 99024; 99222 ==

== ENCOUNTER 2025-07-11 11:25 | Outpatient (AMB) | payer OTHER, SELFPAY ==
--- NOTE | 2025-07-11 11:26 | MHC.OFFVIS ---
Vital Signs 07/11/25 11:32 Height 5 ft 5 in Weight 328 lb 7.82 oz BMI 54.7 Respiration 16 Intake Visit Reasons: s/p lab mary Intake Note: Patient is seen in office for post op assessment post laparoscopic cholecystectomy. Pt c/o:denies concerns with surgery site, however IV site on lt arm is red, swollen and is unable to extend the arm, taking Tylenol with temporary relief Hospital Laboratory Technician Required: No Accompanied by: Self / Same As Patient Allergies strawberry (STRAWBERRY) Allergy (Intermediate, Verified 07/11/25 11:32) RASH HPI HPI s/p lab mary: Details: doing well overall. only complain is redness swelling, inability to fully extend arm at the right IV site, denies drainage, fevers or chills. initially had pain in the abdomen but this has been improving. She has some pulling sensation from the Steri-Strips. states her diet and appetite are at baseline. She does have interest in seeing a consumer affairs specialist. Bowel function at baseline. Has not been doing heavy lifting. [facility] Medical History Morbid obesity with BMI of 50.0-59.9, adult Mild intermittent asthma Asthma Surgical History History of wisdom tooth extraction Family History Mother Cervical cancer Substance use disorder Anxiety and depression Father Substance use disorder Sister Bipolar disorder Asthma Maternal Grandmother Anxiety and depression Maternal Grandfather Essential hypertension Social History Household Members: Family Housing: House Do you presently have visiting nurse or other home services: No Alcohol intake: never Patient Tobacco Use Status: Never used Tobacco e-Cigarette/Vaping Use: Never Used Substance Use Type: Marijuana service: No Current occupational status: employed Cognitive needs: No Hearing needs: No Vision needs: Yes Female Reproductive History Menstrual Age of Menarche: 13 Review of Systems Const All systems reviewed & are unremarkable except as noted in HPI and below Physical Exam Vital Signs: Last Vital Signs Resp 16 07/11/25 11:32 BMI result Body Mass Index 54.7 Const General: comfortable and no acute distress Orientation/consciousness: patient oriented x3 GI Other: Incision sites healing well. Steri-Strips removed. Incision sites intact no drainage no palpable fluid collection, no surrounding erythema. Nontender Inspection: No distended Palpation (GI): Soft to palpation and nontender Neuro General: patient oriented x3 Assessment & Plan Assessment & Plan (1) Phlebitis: Code(s): I80.9 - Phlebitis and thrombophlebitis of unspecified site Category: Medical (2) S/P laparoscopic cholecystectomy: Code(s): Z90.49 - Acquired absence of other specified parts of digestive tract Category: Surgical (3) Morbid obesity with BMI of 50.0-59.9, adult: Code(s): E66.01 - Morbid (severe) obesity due to excess calories; Z68.43 - Body mass index [BMI] 50.0-59.9, adult Category: Medical Plan 29-year-old female s/p laparoscopic cholecystectomy on 07/06/2025 reporting to the office for routine follow up. Overall patient doing well, only concern is the right cubital fossa at the site of her IV. Has been warm very tender. She has not had any drainage from this area and has not had any fevers at home. This appears to be phlebitis, reassured patient with the attending physician Dr. Goff. Reassured patient she does not need antibiotics at this time and that she can do warm compresses 3 times per day for about 15 minutes at a time. Otherwise abdominal pain has been improving each day. Denies nausea or vomiting, diarrhea constipation. Appetite at baseline she is interested in seeing a consumer affairs specialist to help with weight management. We will send a referral for the [facility] weight management program, we gave her a brochure for their service. On exam the abdomen is soft and benign, the incisions appear to be healing well. I removed the Steri-Strips. incisions remained intact, no drainage, no palpable fluid collection no erythema, nontender. No concern for infection at this time. We will continue with activity restrictions no heavy lifting greater than 20 lb for the next 3 weeks. She will follow up in 3 weeks or sooner with any concerns. Surgical pathology as follows acute cholecystitis with cholelithiasis. Orders: Referrals Medical Weight Management Referral E66.01 - Morbid (severe) obesity due to excess calories, Z68.43 - Body mass index [BMI] 50.0-59.9, adult Coding Level of Care Code Est Pt Level 3 (57941) Global (83937) Diagnoses Phlebitis I80.9 S/P laparoscopic cholecystectomy Z90.49 Morbid obesity with BMI of 50.0-59.9, adult E66.01; Z68.43
[2025-07-11 11:32] VITALS: RESP 16; BMI 54.7
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
== END 2025-07-11 11:40 | disposition home or self-care (01) ==
LOC: HO.HGS 11:25
PROVIDERS: PCP Internal Medicine
DX: I80.9 Phlebitis and thrombophlebitis of unspecified site (principal); Z90.49 Acquired absence of other specified parts of digestive tract; E66.01 Morbid (severe) obesity due to excess calories; Z68.43 Body mass index [BMI] 50.0-59.9, adult
CPT/HCPCS: 99024

== ENCOUNTER 2025-08-01 09:00 | Outpatient (AMB) | payer OTHER, SELFPAY ==
--- NOTE | 2025-08-01 09:02 | A.OFFVIS_ITS ---
Vital Signs 08/01/25 09:07 Height 5 ft 5 in Weight 326 lb BMI 54.2 BP 136/89 Blood Pressure Location Rt radial Position Sitting Pulse 104 H Intake Visit Reasons: s/p lab mary Intake Note: Patient here for 1m s/p lap mary. YAHIR (FEI) 07-11-2025 Patient c/o: no concerns. Reports incision healing well. No longer taking rx pain meds. Surgery: (GRACE) 07-06-2025 Reconditioning Associate Required: No Accompanied by: Self / Same As Patient Allergies strawberry (STRAWBERRY) Allergy (Intermediate, Verified 08/01/25 09:07) RASH HPI Comments Details: 29-year-old female who had underwent a laparoscopic cholecystectomy on 07/06/2025 for acute cholecystitis. She was seen in the office post operatively and was found to have a phlebitis of her right AC. She was recommended to do warm compresses a few times a day and follow back up in the office in 3 weeks. She reports doing well since. The redness and warmth of her right AC have resolved. She has very mild remaining pain with pushing on her abdomen at her incisions but overall significantly improved. She is tolerating a solid diet and moving her bowels. She has no concerns. [facility] Medical History Morbid obesity with BMI of 50.0-59.9, adult Mild intermittent asthma Asthma Surgical History History of wisdom tooth extraction Family History Mother Cervical cancer Substance use disorder Anxiety and depression Father Substance use disorder Sister Bipolar disorder Asthma Maternal Grandmother Anxiety and depression Maternal Grandfather Essential hypertension Social History Household Members: Family Housing: House Do you presently have visiting nurse or other home services: No Alcohol intake: never Patient Tobacco Use Status: Never used Tobacco e-Cigarette/Vaping Use: Never Used Substance Use Type: Marijuana service: No Current occupational status: employed Cognitive needs: No Hearing needs: No Vision needs: Yes Female Reproductive History Menstrual Age of Menarche: 13 Review of Systems Const All systems reviewed & are unremarkable except as noted in HPI and below Physical Exam Vital Signs: Last Vital Signs Pulse 104 H 08/01/25 09:07 BP 136/89 08/01/25 09:07 BMI result Body Mass Index 54.2 Const General: comfortable, no acute distress and alert Orientation/consciousness: patient oriented x3 Resp Effort & Inspection: normal respiratory effort GI Other: well healed incisions, no surrounding erythema or edema very mildly tender (epigastric) Inspection: No distended Palpation (GI): Soft to palpation and no guarding Percussion: Yes normal to percussion Skin General skin exam: no rashes or lesions noted and no jaundice Neuro General: patient oriented x3 and moves all extremities Results Reviewed Results Reviewed: Gallbladder, cholecystectomy: Acute cholecystitis and cholelithiasis Assessment & Plan Assessment & Plan (1) S/P laparoscopic cholecystectomy: Code(s): Z90.49 - Acquired absence of other specified parts of digestive tract Category: Surgical Plan 29-year-old female s/p laparoscopic cholecystectomy on 07/06/2025 for acute cholecystitis. She tolerated the procedure well. She was found to have a phlebitis of her right AC on her routine follow up visit which has since resolved. She continues to do well without concerns. Incisions are well healed without concern of infection. She can begin to resume all activities as tolerated next week. She can follow up as needed. All questions answered. Coding Level of Care Code Global (10690) Diagnoses S/P laparoscopic cholecystectomy Z90.49
[2025-08-01 09:07] VITALS: BP 136/89; PULSE 104; BMI 54.2
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
== END 2025-08-01 09:13 | disposition home or self-care (01) ==
LOC: HO.HGS 09:01
PROVIDERS: PCP Internal Medicine; Visit Provider Physician Assistant Surgical
DX: Z90.49 Acquired absence of other specified parts of digestive tract (principal)
CPT/HCPCS: 99024

== ENCOUNTER 2025-10-10 15:39 | Outpatient (AMB) | payer OTHER, SELFPAY ==
[2025-10-10 15:43] VITALS: BP 100/70; PULSE 91; RESP 16; TEMP 36.5; O2SAT 97; BMI 55.4
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
== END 2025-10-10 16:11 | disposition home or self-care (01) ==
LOC: HO.HMCC 15:39
PROVIDERS: PCP Internal Medicine; Visit Provider Internal Medicine
DX: E66.01 Morbid (severe) obesity due to excess calories (principal); Z68.43 Body mass index [BMI] 50.0-59.9, adult; R74.01 Elevation of levels of liver transaminase levels; D72.829 Elevated white blood cell count, unspecified